=== PATIENT | male | born 1955 | race Caucasian/White ===

== ENCOUNTER → 2016-08-17 | Outpatient (CLI) | payer BC ==
[~2016-08-17] MED LIST: ASPI81TA28 PO; FLUT1INH INH; GLUCTAB4 PO; IPRA1AER2 INH; NUTR-218 PO; OXYC5TAB PO
--- NOTE | 2016-08-17 13:19 | DIAGNOSTIC IMAGING REPORT ---
CT OF THE CHEST WITHOUT IV CONTRAST CLINICAL HISTORY: LUNG CANCER COMPARISON STUDY: 05/16/2016 CT DOSE: 351.19 mGy.cm TECHNIQUE: CT of the thorax was performed from the thoracic inlet to the lung bases. Images are reviewed in the axial, sagittal, and coronal planes. IV contrast was not administered for this examination. FINDINGS: Thyroid: Imaged portions of the thyroid gland are normal in appearance. Thoracic aorta: The thoracic aorta is normal in course and caliber, noting standard 3 vessel arch anatomy. Heart: The heart is normal in size and configuration, without pericardial effusion. Lungs and pleural spaces: There is pulmonary emphysema. There are postsurgical changes of a right lower lobectomy. There is a small right pleural effusion. There are paramediastinal opacities with air bronchograms and mild bronchiectasis. These have a linear border favoring post radiation change. Mediastinum: There is no mediastinal lymphadenopathy. Kary: Clear. Axilla: Clear. Upper abdomen: There is a stable 11 mm hypodensity within the left hepatic lobe. There is cholelithiasis. No adrenal masses are visualized. Skeletal structures: There are no lytic or blastic osseous lesions. IMPRESSION: 1. Postsurgical changes of a right lower lobectomy 2. Paramediastinal anomaly right-sided airspace opacities with a linear border. The findings are most consistent with radiation pneumonitis 3. Small right pleural effusion 4. Emphysema Electronically signed by: Ángel Dietz M.D. 08/17/2016 1:17 PM Dictated Date/Time: 08/17/2016 1:13 PM
== END | disposition home or self-care (01) ==
LOC: C.CTS 13:01
PROVIDERS: ATTEND Surgery
DX: C34.90 Malignant neoplasm of unspecified part of unspecified bronchus or lung (principal); J43.9 Emphysema, unspecified; J90 Pleural effusion, not elsewhere classified

== ENCOUNTER → 2016-12-05 | Outpatient (CLI) | payer BC ==
[~2016-12-05] MED LIST changes: +OPTIRAY 320 IV PRN
--- NOTE | 2016-12-05 08:54 | DIAGNOSTIC IMAGING REPORT ---
CT SCAN OF THE CHEST WITH IV CONTRAST CLINICAL HISTORY: Non-small cell lung cancer. COMPARISON STUDY: Chest CT scans dated 08/17/2016 and 05/26/2016. TECHNIQUE: Following the IV administration of 93 cc of Optiray 320, CT scan of the thorax was performed from the thoracic inlet to the upper abdomen. Images are reviewed in the axial, sagittal, and coronal planes. IV contrast was administered without complication. CT DOSE: 1089.78 mGy.cm FINDINGS: Thyroid: Atrophic. Thoracic aorta: The thoracic aorta is normal in caliber and demonstrates bovine variant arch anatomy. No dissection is seen. There is approximately 50% stenosis of the proximal left subclavian artery secondary soft plaque. Pulmonary vasculature: The pulmonary trunk is normal in caliber. There are no filling defects identified in the central pulmonary vessels to indicate pulmonary embolus. Note that this examination was not protocoled for evaluation of the pulmonary arteries. Heart: The heart is top normal in size and without pericardial effusion. Lungs and pleural spaces: Emphysema is observed. There are postoperative changes from right-sided pulmonary resection with compensatory hyperinflation of the left lung. There is no airspace consolidation typical for pneumonia. Paravertebral scarring/fibrosis at the medial right lung base is similar to previous. There is trace pleural fluid on the right. Parenchymal scarring is also seen in the anterior right upper lung. No left pulmonary lesion is identified. The trachea and central airways are clear. Mediastinum: There is no mediastinal lymphadenopathy. Kary: Clear. Axillae: There is no axillary lymphadenopathy. Upper abdomen: There are calcified gallstones. A small hiatal hernia is noted. Circumferential wall thickening is seen in the mid to distal esophagus. Gynecomastia is observed. No adrenal lesion is seen. Skeletal structures: The skeletal structures are osteopenic. No lytic or blastic bony lesions are seen. IMPRESSION: 1. Emphysema and postoperative change in the right lung as above. 2. Paramediastinal scarring/fibrosis at the right lung base is similar to the 08/17/2016 examination and likely treatment related. There is trace associated right pleural fluid. 3. There is no definite evidence of intrathoracic metastatic disease. 4. No airspace consolidation is identified typical for pneumonia. 5. There is a small hiatal hernia and circumferential wall thickening is identified in the mid to distal esophagus. Correlate clinically for evidence of esophagitis. This may be treatment related. 6. Cholelithiasis. 7. Additional findings as above. Electronically signed by: Kojo Goff M.D. 12/05/2016 8:53 AM Dictated Date/Time: 12/05/2016 8:13 AM
--- NOTE | 2016-12-05 09:33 | DIAGNOSTIC IMAGING REPORT ---
CT SCAN OF THE ABDOMEN AND PELVIS WITH IV CONTRAST CLINICAL HISTORY: Follow-up non-small cell lung cancer. COMPARISON STUDY: Abdominal CT dated 05/26/2016. TECHNIQUE: Following the IV administration of 93 cc of Optiray 320, CT scan of the abdomen and pelvis is performed from the lung bases to the proximal femora. Images are reviewed in the axial, sagittal, and coronal planes. IV contrast was administered without complication. Automated dose control exposure was utilized. CT DOSE: Reported separately under the concurrently performed CT scan of the chest. FINDINGS: Lung bases: The heart is normal in size and without pericardial effusion. Paravertebral fibrosis and trace pleural fluid is seen at the right lung base. Emphysema is observed. No airspace consolidation is seen typical for pneumonia. Gynecomastia is noted. There is a small hiatal hernia with circumferential esophageal wall thickening. Liver: The contrast-enhanced liver is normal in size, contour, and attenuation. There is no intrahepatic biliary ductal dilatation. The hepatic veins and portal veins are patent. 11 mm cyst is noted in the left lobe of liver. 2 additional subcentimeter hypodensities in the right lobe also likely represent cysts but are too small for definitive characterization. These are similar to previous. Gallbladder: Numerous calcified gallstones are identified. There is no CT evidence of cholecystitis. Spleen: Normal in size and attenuation. Pancreas: Unremarkable. Adrenal glands: Unremarkable. Kidneys: The contrast enhanced kidneys demonstrate mild cortical atrophy and are without hydronephrosis. The kidneys enhance symmetrically. Abdominal vasculature: The abdominal aorta is normal in course and caliber noting moderate atherosclerotic calcification. Bowel: The small bowel and colon are normal in course and caliber. There is advanced colonic diverticulosis without CT evidence of acute diverticulitis. Moderate colonic fecal retention is observed. The appendix is well-visualized and normal. Peritoneum: There is no intraperitoneal free air or abdominal ascites. There is a small hiatal hernia. Lymphadenopathy: None. Pelvic viscera: The prostate gland is enlarged and heterogeneous. There is median lobe hypertrophy. The bladder wall is circumferentially thickened and trabeculated suggesting the sequelae of chronic outlet obstruction. Small bladder diverticula are suggested. Skeletal structures: The skeletal structures are osteopenic. No lytic or blastic lesions are seen. IMPRESSION: 1. There is no evidence of metastatic disease in the abdomen or pelvis. 2. Advanced colonic diverticulosis without CT evidence of acute diverticulitis. 3. Paravertebral fibrosis is seen at the right lung base and there is trace right pleural effusion. This likely represents post treatment related change. See report of chest CT performed concurrently for detailed intrathoracic findings. 4. Cholelithiasis. 5. Prostatomegaly with evidence of chronic bladder outlet obstruction. 6. Additional findings as above. Electronically signed by: Kojo Goff M.D. 12/05/2016 9:32 AM Dictated Date/Time: 12/05/2016 9:26 AM
== END | disposition home or self-care (01) ==
LOC: C.CTS 07:46
PROVIDERS: ATTEND Nurse Practitioner Family
DX: C34.31 Malignant neoplasm of lower lobe, right bronchus or lung (principal); K80.20 Calculus of gallbladder without cholecystitis without obstruction; K57.90 Diverticulosis of intestine, part unspecified, without perforation or abscess without bleeding; N40.1 Benign prostatic hyperplasia with lower urinary tract symptoms; J43.9 Emphysema, unspecified; K44.9 Diaphragmatic hernia without obstruction or gangrene

== ENCOUNTER → 2017-01-03 | Outpatient (CLI) | payer BC ==
[2016-06-10 09:29] VITALS: BP 103/61; PULSE 71
[~2017-01-03] MED LIST changes: -OPTIRAY 320 IV PRN
[2017-01-03 13:09] VITALS: BP 115/76; PULSE 90; TEMP 36.8; O2SAT 97
--- NOTE | 2017-01-03 16:27 | Radiation Oncology Follow-Up ---
Radiation Oncology Follow-Up Date of Visit Jan 03, 2017. Reason For Visit 6 month follow-up Radiation Completion Date 05/04/16 Diagnosis (1) Non-small cell cancer of right lung Status: Resolved Onset Date: 11/06/2015 Location: right lower lobe Histology Subtype: adenocarcinoma Stage: lll (A) Permanent Comment: DIAGNOSIS: Lung, RLL, adenocarcinoma, [id number], stage IIIA TREATMENT: 1. Right lower lobectomy/mediastinal lymph node dissection - Dr. Cordoba - 11/24 2. Status post completion of systemic chemotherapy 4 cycles of Taxotere and CDDP 3. Status post completion of radiation therapy 05/04/2016 received 5400 cGy Last Edited By: Yakelin Booker on Jun 10, 2016 10:08 History of Present Illness Mr. Witt is a 60-year-old gentleman who initially underwent a low dose CT screening protocol at [facility] on 09/18/2015. His imaging study revealed a 20 mm pleural-based nodule in the right lower lobe. There is no evidence of any mediastinal adenopathy. He subsequently underwent a pulmonary function test on 10/02/2015 which showed an FEV1 of 3.53 L and a DLCO of 70% predicted. He subsequently underwent a PET/CT scan on 10/07/2015 which revealed FDG avid uptake associated with the right lower lobe nodule which were measured 2 cm in the greatest dimension. Additionally, there were 2 additional pulmonary and pleural-based nodules that measure up to 4 mm that were not FDG avid. There is no avid mediastinal or hilar adenopathy. Additionally, the PET scan did not show any evidence of distant metastatic disease. The patient had a CT-guided needle biopsy on 11/06/2015 which revealed atypical glandular cells highly suspicious for adenocarcinoma. The patient was then seen in consultation by Dr. Nikita Cordoba who did discuss surgical resection for treatment. The patient did elect for a right lower lobectomy and mediastinal lymph node dissection and this procedure was completed on 11/25/2015. Pathology revealed adenocarcinoma in the right lower lobe that measured 2.3 cm in the greatest size. The tumor was well differentiated and did not extend to any visceral or pleural surfaces. The margins were all negative and there is no evidence of lymphovascular space invasion. The mediastinal lymph node dissection revealed 7/12 positive lymph nodes with the greatest dimension being 1 cm with no evidence of extranodal extension. The patient was referred to Dr. Jhoan Llanes who discussed adjuvant chemotherapy. We are now seeing the patient in consultation to discuss the role of adjuvant radiation therapy. He has now completed his 4 cycles of chemotherapy. He was given Taxotere and CDDP. He did have some mild nausea and fatigue. If this is steadily and proving. He no longer has nausea but has some continued fatigue. He would have decreased appetite from the chemotherapy and that this would improve. He also changes of bowel habits. His respiratory status is stable. He does have shortness of breath on exertion. He had an MRI for restaging and that was negative. He presents today for his CT simulation. He completed radiation 05/04/2016. He received 5400 cGy. Interim History He is doing well over the past 6 months. He had some issues with shortness of breath and saw Dr. mckenzie he prescribed an inhaler. He has been using Briel and this did help his shortness of breath especially with going up steps. He has had no problems with any skin irritation or discomfort in the chest. The neuropathy of his fingers has resolved. 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 He also had altered taste and that is normal. He had a recheck CT scan 12/06/2016. This showed emphysema and postoperative changes in the right lung. Paramediastinal scarring/fibrosis at the right lung base is similar to 2016. There is trace associated right pleural fluid. There is no definite evidence of intrathoracic metastatic disease. No airspace consolidation is identified typical for pneumonia. There is small hiatal hernia and circumferential wall thickness is a identified in the mid to lower esophagus. Correlate clinically for evidence of esophagitis. Allergies Coded Allergies: Procaine (Verified Adverse Reaction, Mild, swelling in face, 11/25/15) Pt states has had novaocain since without problem Home Medications Scheduled Aspirin (Aspirin Ec), 81 MG PO QAM Fluticasone Furoate-Vilanterol (Breo Ellipta), 1 PUFF INH DAILY Veewyxvomgm-Pgl-Sef C-Manganes (Glucosamine Msm Complex), 2 CAP PO DAILY Nutritional Supplements (Juice Plus Fibre), 6 CAP PO QAM Scheduled PRN Oxycodone/Acetaminophen 5MG/325MG (Roxicet 5MG/325MG), 1-2 TAB PO Q8 PRN for Pain Review of Systems Gastrointestinal: Symptoms: WNL Oral: Symptoms: No Problems Respiratory: Symptoms: WNL Other Respiratory: SOB at times with CASTRO Urinary: Symptoms: WNL Skin: Symptoms: No Problems Physical Exam Vital Signs Date Time Temp Pulse Resp B/P (MAP) Pulse Ox O2 Delivery O2 Flow Rate FiO2 01/03/17 13:09 36.8 90 16 115/76 97 Fatigue: None General Appearance: no apparent distress Eyes: normal inspection, EOMI ENT: normal ENT inspection, hearing grossly normal Neck: no adenopathy, thyroid normal Respiratory/Chest: lungs clear, no respiratory distress, no accessory muscle use, + decreased breath sounds Cardiovascular: regular rate, rhythm, no gallop, no murmur Abdomen: non tender, soft, no organomegaly Extremities: no pedal edema Neurologic/Psychiatric: no motor/sensory deficits, normal mood/affect Skin: warm/dry Laboratory Studies Test 10/26/16 13:30 12/07/16 08:16 White Blood Count 6.83 K/uL (4.8-10.8) 7.08 K/uL (4.8-10.8) Red Blood Count 5.64 M/uL (4.7-6.1) 5.54 M/uL (4.7-6.1) Hemoglobin 14.9 g/dL (14.0-18.0) 15.0 g/dL (14.0-18.0) Hematocrit 46.3 % (42-52) 46.0 % (42-52) Mean Corpuscular Volume 82.1 fL (80-100) 83.0 fL (80-100) Mean Corpuscular Hemoglobin 26.4 pg (25-34) 27.1 pg (25-34) Mean Corpuscular Hemoglobin Concent 32.2 g/dl (32-36) 32.6 g/dl (32-36) Platelet Count 322 K/uL (130-400) 306 K/uL (130-400) Mean Platelet Volume 9.4 fL (7.4-10.4) 9.0 fL (7.4-10.4) Neutrophils (%) (Auto) 60.1 % 65.6 % Lymphocytes (%) (Auto) 23.6 % 17.5 % Monocytes (%) (Auto) 9.8 % 11.9 % Eosinophils (%) (Auto) 5.6 % 3.4 % Basophils (%) (Auto) 0.6 % 1.0 % Neutrophils # (Auto) 4.11 K/uL (1.4-6.5) 4.65 K/uL (1.4-6.5) Lymphocytes # (Auto) 1.61 K/uL (1.2-3.4) 1.24 K/uL (1.2-3.4) Monocytes # (Auto) 0.67 K/uL (0.11-0.59) 0.84 K/uL (0.11-0.59) Eosinophils # (Auto) 0.38 K/uL (0-0.5) 0.24 K/uL (0-0.5) Basophils # (Auto) 0.04 K/uL (0-0.2) 0.07 K/uL (0-0.2) RDW Standard Deviation 43.1 fL (36.4-46.3) 42.6 fL (36.4-46.3) RDW Coefficient of Variation 14.4 % (11.5-14.5) 14.0 % (11.5-14.5) Immature Granulocyte % (Auto) 0.3 % 0.6 % Immature Granulocyte # (Auto) 0.02 K/uL (0.00-0.02) 0.04 K/uL (0.00-0.02) Urine Color YELLOW Urine Appearance CLEAR (CLEAR) Urine pH 7.0 (4.5-7.5) Urine Specific [place] 1.013 (1.000-1.030) Urine Protein NEG (NEG) Urine Glucose (UA) NEG (NEG) Urine Ketones NEG (NEG) Urine Occult Blood NEG (NEG) Urine Nitrite NEG (NEG) Urine Bilirubin NEG (NEG) Urine Urobilinogen NEG (NEG) Urine Leukocyte Esterase NEG (NEG) Sodium Level 139 mmol/L (136-145) 139 mmol/L (136-145) Potassium Level 4.3 mmol/L (3.5-5.1) 4.1 mmol/L (3.5-5.1) Chloride Level 103 mmol/L (98-107) 105 mmol/L (98-107) Carbon Dioxide Level 27 mmol/L (21-32) 27 mmol/L (21-32) Anion Gap 9.0 mmol/L (3-11) 7.0 mmol/L (3-11) Blood Urea Nitrogen 15 mg/dl (7-18) 13 mg/dl (7-18) Creatinine 1.20 mg/dl (0.60-1.40) 1.10 mg/dl (0.60-1.40) Estimated GFR () 75.2 82.9 Estimated GFR (Non- 64.9 71.6 BUN/Creatinine Ratio 12.7 (10-20) 11.9 (10-20) Random Glucose 85 mg/dl (70-99) 96 mg/dl (70-99) Calcium Level 9.1 mg/dl (8.5-10.1) 9.4 mg/dl (8.5-10.1) Total Bilirubin 1.1 mg/dl (0.2-1) 1.0 mg/dl (0.2-1) Aspartate Amino Transferase (AST) 15 U/L (15-37) 12 U/L (15-37) Alanine Aminotransferase (ALT) 30 U/L (12-78) 26 U/L (12-78) Alkaline Phosphatase 85 U/L (45-117) 75 U/L (45-117) Total Protein 7.5 gm/dl (6.4-8.2) 7.3 gm/dl (6.4-8.2) Albumin 4.2 gm/dl (3.4-5.0) 3.8 gm/dl (3.4-5.0) Globulin 3.3 gm/dl (2.5-4.0) 3.5 gm/dl (2.5-4.0) Albumin/Globulin Ratio 1.3 (0.9-2) 1.1 (0.9-2) Triglycerides Level 147 mg/dl (0-150) Cholesterol Level 216 mg/dl (0-200) HDL Cholesterol 57 mg/dl LDL Cholesterol, Calculated 130 mg/dl VLDL Cholesterol, Calculated 29 mg/dl Cholesterol/HDL Ratio 3.8 Lactate Dehydrogenase 119 U/L (87-241) Additional Studies Patient: SASCHA WITT Address1: [address] [facility] Rec: [id number] Address2: Acct ID: [id number] [facility] Zip: [place] [address] Date: 1955 Sex: M Room/Bed: Ref Phy: Sascha Sifuentes M.D.(ELKE) SC: C.CTS Att Phy: Mally Mercer CRNP Report #: [id number] Miri Phy: Sascha Sifuentes M.D.(ELKE) Test: APW Admit Phy: Data Collection Specialist: KAYDEN Interpreting Phy: Kojo Goff M.D. Diagnosis: NON SMALL CELL LUNG CA Ordering Phy: Mally Mercer Service Date: 12/05/16 Admit Date: 12/05/16 MNE: [id number] CONF: DICTATED BY: Kojo Goff M.D.]] CC: Sascha Sifuentes M.D.(ELKE) Mally Mercer CRNP Endcc: [~ rep ct add3]] CT SCAN OF THE ABDOMEN AND PELVIS WITH IV CONTRAST CLINICAL HISTORY: Follow-up non-small cell lung cancer. COMPARISON STUDY: Abdominal CT dated 05/26/2016. TECHNIQUE: Following the IV administration of 93 cc of Optiray 320, CT scan of the abdomen and pelvis is performed from the lung bases to the proximal femora. Images are reviewed in the axial, sagittal, and coronal planes. IV contrast was administered without complication. Automated dose control exposure was utilized. CT DOSE: Reported separately under the concurrently performed CT scan of the chest. FINDINGS: Lung bases: The heart is normal in size and without pericardial effusion. Paravertebral fibrosis and trace pleural fluid is seen at the right lung base. Emphysema is observed. No airspace consolidation is seen typical for pneumonia. Gynecomastia is noted. There is a small hiatal hernia with circumferential esophageal wall thickening. Liver: The contrast-enhanced liver is normal in size, contour, and attenuation. There is no intrahepatic biliary ductal dilatation. The hepatic veins and portal veins are patent. 11 mm cyst is noted in the left lobe of liver. 2 additional subcentimeter hypodensities in the right lobe also likely represent cysts but are too small for definitive characterization. These are similar to previous. Gallbladder: Numerous calcified gallstones are identified. There is no CT evidence of cholecystitis. Spleen: Normal in size and attenuation. Pancreas: Unremarkable. Adrenal glands: Unremarkable. Kidneys: The contrast enhanced kidneys demonstrate mild cortical atrophy and are without hydronephrosis. The kidneys enhance symmetrically. Abdominal vasculature: The abdominal aorta is normal in course and caliber noting moderate atherosclerotic calcification. Bowel: The small bowel and colon are normal in course and caliber. There is advanced colonic diverticulosis without CT evidence of acute diverticulitis. Moderate colonic fecal retention is observed. The appendix is well-visualized and normal. Peritoneum: There is no intraperitoneal free air or abdominal ascites. There is a small hiatal hernia. Lymphadenopathy: None. Pelvic viscera: The prostate gland is enlarged and heterogeneous. There is median lobe hypertrophy. The bladder wall is circumferentially thickened and trabeculated suggesting the sequelae of chronic outlet obstruction. Small bladder diverticula are suggested. Skeletal structures: The skeletal structures are osteopenic. No lytic or blastic lesions are seen. IMPRESSION: 1. There is no evidence of metastatic disease in the abdomen or pelvis. 2. Advanced colonic diverticulosis without CT evidence of acute diverticulitis. 3. Paravertebral fibrosis is seen at the right lung base and there is trace right pleural effusion. This likely represents post treatment related change. See report of chest CT performed concurrently for detailed intrathoracic findings. 4. Cholelithiasis. 5. Prostatomegaly with evidence of chronic bladder outlet obstruction. 6. Additional findings as above. Electronically signed by: Kojo Goff M.D. 12/05/2016 9:32 AM Dictated Date/Time: 12/05/2016 9:26 AM Patient: SASCHA WITT Address1: [address] [facility] Rec: [id number] Address2: Acct ID: [id number] [facility] Zip: [place] [id number] Date: 1955 Sex: M Room/Bed: Ref Phy: Sascha Sifuentes M.D.(ELKE) SC: C.CTS Att Phy: Mally Mercer CRNP Report #: [id number] Miri Phy: Sascha Sifuentes M.D.(ELKE) Test: CX Admit Phy: Data Collection Specialist: KAYDEN Interpreting Phy: Kojo Goff M.D. Diagnosis: NON SMALL CELL LUNG CA Ordering Phy: Mally Mercer Service Date: 12/05/16 Admit Date: 12/05/16 MNE: [id number] CONF: DICTATED BY: Kojo Goff M.D.]] CC: Sascha Sifuentes M.D.(Mally Concepcion CRNP Endcc: [~ rep ct add3]] CT SCAN OF THE CHEST WITH IV CONTRAST CLINICAL HISTORY: Non-small cell lung cancer. COMPARISON STUDY: Chest CT scans dated 08/17/2016 and 05/26/2016. TECHNIQUE: Following the IV administration of 93 cc of Optiray 320, CT scan of the thorax was performed from the thoracic inlet to the upper abdomen. Images are reviewed in the axial, sagittal, and coronal planes. IV contrast was administered without complication. CT DOSE: 1089.78 mGy.cm FINDINGS: Thyroid: Atrophic. Thoracic aorta: The thoracic aorta is normal in caliber and demonstrates bovine variant arch anatomy. No dissection is seen. There is approximately 50% stenosis of the proximal left subclavian artery secondary soft plaque. Pulmonary vasculature: The pulmonary trunk is normal in caliber. There are no filling defects identified in the central pulmonary vessels to indicate pulmonary embolus. Note that this examination was not protocoled for evaluation of the pulmonary arteries. Heart: The heart is top normal in size and without pericardial effusion. Lungs and pleural spaces: Emphysema is observed. There are postoperative changes from right-sided pulmonary resection with compensatory hyperinflation of the left lung. There is no airspace consolidation typical for pneumonia. Paravertebral scarring/fibrosis at the medial right lung base is similar to previous. There is trace pleural fluid on the right. Parenchymal scarring is also seen in the anterior right upper lung. No left pulmonary lesion is identified. The trachea and central airways are clear. Mediastinum: There is no mediastinal lymphadenopathy. Kary: Clear. Axillae: There is no axillary lymphadenopathy. Upper abdomen: There are calcified gallstones. A small hiatal hernia is noted. Circumferential wall thickening is seen in the mid to distal esophagus. Gynecomastia is observed. No adrenal lesion is seen. Skeletal structures: The skeletal structures are osteopenic. No lytic or blastic bony lesions are seen. IMPRESSION: 1. Emphysema and postoperative change in the right lung as above. 2. Paramediastinal scarring/fibrosis at the right lung base is similar to the 08/17/2016 examination and likely treatment related. There is trace associated right pleural fluid. 3. There is no definite evidence of intrathoracic metastatic disease. 4. No airspace consolidation is identified typical for pneumonia. 5. There is a small hiatal hernia and circumferential wall thickening is identified in the mid to distal esophagus. Correlate clinically for evidence of esophagitis. This may be treatment related. 6. Cholelithiasis. 7. Additional findings as above. Electronically signed by: Kojo Goff M.D. 12/05/2016 8:53 AM Assessment & Plan Plan: Continue regular follow-up with Dr. Mckenzie, Dr. Marquez, and Dr. Llanes. He was seen today also by Dr. Henry. We discussed the findings on the study the 3 torres some inflammation or thickening of the esophagus. This they have been related to the radiation therapy. This will be followed on recheck CT scans. If persistent stent he may need to have an upper GI endoscopy. We asked him to return to our office in 1 year. We have reviewed that he will likely be scheduled for recheck CAT scan in May through Dr. Llanes's office. He may call our office if he has any questions or concerns in the interim. Total Time In Follow-Up I spent 15 minutes speaking to the patient performing examination. I spent 15 minutes reviewing information in completing this note. Copy To Jhoan Llanes D.O.; Nikita Mckenzie DO; Srini Marquez M.D.
== END | disposition home or self-care (01) ==
LOC: C.ONC 13:05
PROVIDERS: ATTEND Physician Assistant Medical
DX: Z08 Encounter for follow-up examination after completed treatment for malignant neoplasm (principal); Z92.3 Personal history of irradiation; Z85.118 Personal history of other malignant neoplasm of bronchus and lung

== ENCOUNTER → 2017-06-22 | Outpatient (CLI) | payer BC ==
[~2017-06-22] MED LIST changes: -IPRA1AER2 INH
--- NOTE | 2017-06-22 15:42 | DIAGNOSTIC IMAGING REPORT ---
CT SCAN OF THE CHEST WITHOUT IV CONTRAST CLINICAL HISTORY: Non-small cell lung cancer. COMPARISON STUDY: Chest CT scans dated 12/05/2016 and 05/26/2016. TECHNIQUE: CT scan of the thorax was performed from the thoracic inlet to the upper abdomen. Images are reviewed in the axial, sagittal, and coronal planes. IV contrast was not administered for this examination as per the referring clinician. A dose lowering protocol was utilized adhering to the principles of ALARA. The examination is degraded by streak artifact from the left arm which could not be elevated above the chest. CT DOSE: 600.47 mGycm FINDINGS: Thyroid: Atrophic. Thoracic aorta: The thoracic aorta is normal in caliber and demonstrates bovine variant arch anatomy. Heart: The heart is top normal in size and without pericardial effusion. The pulmonary trunk is normal in caliber. Lungs and pleural spaces: Emphysema is observed. There are postoperative changes from right-sided pulmonary resection with compensatory hyperinflation of the left lung. There is no airspace consolidation typical for pneumonia. Paravertebral scarring/fibrosis at the medial right lung base is similar to previous. There is trace pleural fluid on the right. Parenchymal scarring is also seen in the anterior right upper lung. No left pulmonary lesion is identified. The trachea and central airways are clear. Mediastinum: There is no mediastinal lymphadenopathy. There is curvature to the mediastinum, similar to previous. Kary: Not well assessed without IV contrast. Axillae: There is no axillary lymphadenopathy. Upper abdomen: There are calcified gallstones. A moderate hiatal hernia is noted. Circumferential wall thickening is again seen in the mid to distal esophagus. Gynecomastia is observed. No adrenal lesion is seen. A 10 mm cyst is noted in the left lobe of liver. Skeletal structures: The skeletal structures are osteopenic. No lytic or blastic bony lesions are seen. IMPRESSION: 1. Emphysema and postoperative change in the right lung as above. 2. Paramediastinal scarring/fibrosis at the right lung base is similar to prior examinations and likely treatment related. There is trace associated right pleural fluid. 3. There is no clear evidence of recurrent or metastatic disease in the thorax. 4. No airspace consolidation is identified typical for pneumonia. 5. There is a small hiatal hernia with circumferential wall thickening again identified in the mid to distal esophagus. This may be treatment related. Clinical correlation will be required. 6. Cholelithiasis. 7. Additional findings as above. Electronically signed by: Kojo Goff M.D. 06/22/2017 3:41 PM Dictated Date/Time: 06/22/2017 3:35 PM
== END | disposition home or self-care (01) ==
LOC: C.CTS 15:10
PROVIDERS: ATTEND Surgery
DX: C34.90 Malignant neoplasm of unspecified part of unspecified bronchus or lung (principal); J43.9 Emphysema, unspecified; Z90.2 Acquired absence of lung [part of]; J84.10 Pulmonary fibrosis, unspecified; K44.9 Diaphragmatic hernia without obstruction or gangrene; K80.20 Calculus of gallbladder without cholecystitis without obstruction

== ENCOUNTER → 2017-06-22 | Outpatient (CLI) | payer BC ==
[~2017-06-22] MED LIST changes: +OPTIRAY 320 IV PRN
--- NOTE | 2017-06-22 16:16 | DIAGNOSTIC IMAGING REPORT ---
CT OF THE ABDOMEN AND PELVIS WITH CONTRAST CLINICAL HISTORY: Non-small cell lung cancer. COMPARISON STUDY: CT of the abdomen and pelvis December 05, 2016. TECHNIQUE: Following IV administration of 94 mL of Optiray-320, axial images of the abdomen and pelvis were obtained from the lung bases to the proximal femurs. Images were reviewed in the axial, sagittal, and coronal planes. IV contrast was administered without complication. A dose lowering technique was utilized adhering to the principles of ALARA. CT DOSE: 1293.78 mGycm FINDINGS: The chest CT will be reported separately. A few hypodense hepatic lesions are unchanged and likely reflect cysts. The spleen, adrenal glands, kidneys and pancreas are unremarkable. There are gallstones within the gallbladder. There is no hydronephrosis. There is no biliary or pancreatic ductal dilatation. No enlarged abdominal or pelvic lymph nodes are present. Caliber and wall thickness of small and large bowel are normal. There is extensive colonic diverticulosis without evidence for acute diverticulitis. No ascites is present. No suspicious osseous lesions are present. Prostate is mildly enlarged. The appendix is normal. IMPRESSION: 1. No evidence of metastatic disease within the abdomen or pelvis. 2. Cholelithiasis. 3. Colonic diverticulosis without evidence for acute diverticulitis. Electronically signed by: Manish Prabhakar M.D. 06/22/2017 4:14 PM Dictated Date/Time: 06/22/2017 3:35 PM
== END | disposition home or self-care (01) ==
LOC: C.CTS 15:02
PROVIDERS: ATTEND Internal Medicine Hematology & Oncology
DX: C34.31 Malignant neoplasm of lower lobe, right bronchus or lung (principal); K80.20 Calculus of gallbladder without cholecystitis without obstruction; K57.30 Diverticulosis of large intestine without perforation or abscess without bleeding

== ENCOUNTER → 2018-01-01 | Outpatient (CLI) | payer BC ==
[~2018-01-01] MED LIST changes: -OPTIRAY 320 IV PRN
--- NOTE | 2018-01-01 10:53 | DIAGNOSTIC IMAGING REPORT ---
CHEST 2 VIEWS ROUTINE HISTORY: 62 years-old Male NON SMALL CELL LUNG CA follow-up study in a patient with history of non-small cell lung carcinoma. COMPARISON: Chest CT 06/22/2017, chest radiograph 12/16/2015 TECHNIQUE: PA and lateral views of the chest FINDINGS: Cardiac silhouette is within normal limits in size. Mediastinal scarring and fibrosis about the right lung base appears unchanged. Postoperative changes of the right lung redemonstrated with chronic volume loss. Moderate right hemidiaphragmatic elevation. No pneumothorax, large pleural effusion or overt pulmonary edema. The left lung demonstrates compensatory hyperinflation and is clear. Emphysema. Bones of the chest appear grossly intact. IMPRESSION: 1. No acute process of the chest. 2. Postoperative changes with chronic scarring and volume loss about the right lung as above. 3. Emphysema. The above report was generated using voice recognition software. It may contain grammatical, syntax or spelling errors. Electronically signed by: Chris Ahumada M.D. 01/01/2018 10:51 AM Dictated Date/Time: 01/01/2018 10:49 AM
== END | disposition home or self-care (01) ==
LOC: C.RAD 10:32
PROVIDERS: ATTEND Nurse Practitioner Family
DX: C34.31 Malignant neoplasm of lower lobe, right bronchus or lung (principal); J43.9 Emphysema, unspecified

== ENCOUNTER 2023-08-27 15:51 | Inpatient (IN) ==
[2023-08-27 16:51] LABS: Hematocrit (blood only) 45.4 % (42.0-52.0); Hemoglobin 14.8 g/dl (14.0-18.0); Mean Corpuscular Hemoglobin 27.1 pg (25.0-34.0); Mean Corpuscular Hgb Conc 32.6 g/dL (32.0-36.0); Mean Platelet Volume 10.2 fL (9.4-12.4); Platelet Count 233 K/uL (130-400); RDW Coefficient of Variation 13.3 % (11.5-14.5); RDW Standard Deviation 40.2 fL (36.4-46.3); Red Blood Count 5.47 M/uL (4.70-6.10); White Blood Count 8.05 K/ul (4.8-10.8)
--- NOTE | 2023-08-27 17:13 | CT Scan Report ---
HEAD CT NONCONTRAST CT DOSE: 547.75 mGy.cm HISTORY: trauma TECHNIQUE: Multiaxial CT images of the head were performed without the use of intravenous contrast. A utomated exposure control was utilized for this study. A dose lowering technique was utilized adheri ng to the principles of ALARA. Comparison: Brain MRI 01/11/2016. Findings: Small amount of hyperdense material within the right maxillary sinus. This could represent inspissated secretions or hemorrhage. The mastoid air cells are clear. Right frontal scalp/supraorbit al soft tissue swelling with a small laceration. There is also nasal soft tissue swelling and mild ri ght occipital scalp swelling.. The calvarium and skull base are intact. The ventricles and sulci are within normal limits. There is no mass, hematoma, midline shift, or acute infarct. Impression: 1. No acute intracranial abnormality. 2. Right-sided scalp and nasal soft tissue swelling. ACT 112: Negative or not required by law. Electronically signed by: Casey Casey M.D. 08/27/2023 5:11 PM
[2023-08-27] MEDS: LIDOCAINE/EPINEPH/TETRACAINE 1 EA SYR EXT STA (17:17)
--- NOTE | 2023-08-27 17:17 | XRay Report ---
XR chest 1V portable HISTORY: Fall. trauma COMPARISON: Chest CT 03/23/2023. FINDINGS: No pneumothorax. The heart is top normal in size. Stable volume loss and blunting of the ri ght lateral costophrenic sulcus suggestive of chronic/postoperative change. No new focal lung consoli dations to suggest a pneumonia. No evidence for pulmonary edema. No acute fractures identified. Stabl e linear scarlike densities within the right lung base. IMPRESSION: No acute process. ACT 112: Negative or not required by law. Electronically signed by: Casey Casey M.D. 08/27/2023 5:15 PM
[2023-08-27 17:19] LABS: INR 1.2 (0.9-1.1); Partial Thromboplastin Ratio 0.8; Partial Thromboplastin Time 22 Seconds (21-31); Prothrombin Time 12.9 Seconds (9.0-12.0)
[2023-08-27 17:26] LABS: Potassium 4.1 mmol/L (3.5-5.1)
[2023-08-27 17:32] LABS: Albumin Globulin Ratio 1.4 (0.9-2); BUN Creatinine Ratio 13.1 (10-20); Bilirubin,Total 1.2 mg/dl (0.2-1.0); Calcium 8.7 mg/dl (8.6-10.3); Creatinine Clr Calc Pharmacy 80.2 ml/min; Est GFR (African American) 90.3 ml/min; Est GFR (Non-African American) 77.9 ml/min; Globulin 2.9 gm/dl (2.5-4.0); Magnesium 2.1 mg/dl (1.7-2.4); Total Protein 6.9 gm/dl (6.0-8.3)
--- NOTE | 2023-08-27 18:04 | CT Scan Report ---
MAXILLOFACIAL CT CT DOSE: HISTORY: fall, nasal injury, right eye lac, syncope TECHNIQUE: Multiaxial CT images of the maxillofacial region were performed and reformatted in the cor onal plane without the use of contrast. A dose lowering technique was utilized adhering to the princ iplrenetta of MOY. COMPARISON: None. FINDINGS: Minimally displaced right nasal bone fracture. There is nasal soft tissue swelling. The vis ualized cervical spine, skull base, pterygoid plates, zygomatic arches, lamina papyracea, orbital dahlia ors, nasal septum, and mandible are intact. There is a punctate metallic density within the right upp er lip on image 167 consistent with a foreign body the globes and retrobulbar fat are intact. There i s right supraorbital and nasal soft tissue swelling. Small amount of hemorrhage noted within the righ t maxillary sinus. IMPRESSION: 1. Minimally displaced right nasal bone fracture. 2. Right supraorbital and nasal soft tissue swelling. 3. There is a punctate metallic foreign body within the upper lip. ACT 112: Negative or not required by law. Electronically signed by: Casey Casey M.D. 08/27/2023 6:01 PM
[2023-08-27 18:41] LABS: Troponin I High Sensitivity 4.4 pg/ml (0-20)
--- NOTE | 2023-08-27 18:41 | Emergency Department Note ---
ED Visit Note I was asked by Dr. Castro to repair this patient's facial lacerations. Examination reveals a 3 cm curvilinear, irregular laceration through the right eyebrow. There is an additional 1 cm superficial laceration over the nasal bridge. No foreign bodies seen in either wound. Patient also requested that I examine the right hand, which shows 2 skin tears over the dorsal hand, proximal to the thumb. Neither of these will require repair. Verbal consent was obtained to perform the procedures and lacerations were closed as follows: Right eyebrow laceration: LET gel was applied to the wound and left placer greater than 30 minutes. Using sterile technique the wound was cleaned with Betadine. The wound was cleansed with sterile saline. The laceration was repaired using 8 simple interrupted 6-0 nylon sutures with the wound edges being well approximated. The patient tolerated the procedure well. Hemostasis was achieved. Nasal bridge laceration: Let gel was applied to the wound and left in place for greater than 30 minutes. Using sterile technique the wound was cleaned with Betadine. The laceration was repaired using 2 simple interrupted 6-0 nylon sutures with the wound edges being well approximated. The patient tolerated the procedure well. Hemostasis was achieved.
[2023-08-27 19:19] LABS: Influenza A virus by PCR Negative (Neg); Influenza B virus by PCR Negative (Neg); RSV by PCR Negative (Neg); SARS CoV2 RNA(COVID-19) Ceph NEGATIVE (Negative)
[2023-08-27] MEDS: ACETAMINOPHEN 500 MG TAB PO STA (19:37)
--- NOTE | 2023-08-27 19:42 | XRay Report ---
XR hand RT min 3V routine CLINICAL HISTORY: fall, pain, thenar eminence. Right hand pain. COMPARISON STUDY: None. FINDINGS: Soft tissue swelling at the thumb base. There is a punctate metallic foreign body within th e distal soft tissues of the right index finger.. Transverse fracture at the base of the right first metacarpal which is mildly displaced. There may be a small intra-articular component of the fracture. There is also radial dislocation of the first metacarpal relation to the trapezium bone. IMPRESSION: 1. Fracture at the base the right first metacarpal which appears to demonstrate a small intra-articul ar component. 2. There is associated radial dislocation at the first carpometacarpal joint. ACT 112: Negative or not required by law. Electronically signed by: Casey Casey M.D. 08/27/2023 7:39 PM
--- NOTE | 2023-08-27 20:11 | CT Scan Report ---
CERVICAL SPINE CT CT DOSE: HISTORY: fall, neck pain TECHNIQUE: Multiaxial CT images of the cervical spine were performed and reformatted in the sagittal and coronal plane without the use of contrast. A dose lowering technique was utilized adhering to th e principles of ALARA. COMPARISON: None. FINDINGS: No fractures. No subluxation. Prevertebral soft tissues and the C1-C2 interval are intact. No pneumothorax. Moderate degenerative changes are noted. IMPRESSION: No fractures within the cervical spine. ACT 112: Negative or not required by law. Electronically signed by: Casey Casey M.D. 08/27/2023 8:09 PM
[2023-08-27] MEDS: ceFAZolin 2000MG 2,000 MG/15 ML SYR IV STA (20:38)
--- NOTE | 2023-08-27 21:53 | History & Physical Report ---
Date of Service August 27, 2023 Assessment & Plan (1) Syncope and collapse: Plan: 67-year-old male with past medical history significant for hyperlipidemia, COPD, diverticulosis of large intestine, obesity, right lung lower lobe adenocarcinoma status post right lung lower lobectomy in 2016 and s/p chemo and radiation , radiation fibrosis of the lung presents with syncope. Patient states he quit smoking when he was diagnosed with lung cancer. But lately once in a while he is smoking. Yesterday had a 6 episodes of diarrhea. Today morning he had 1 episode of loose stools and he was feeling better. He went to [facility]. He smoked. Then he felt dizzy and felt like passing out and next thing he remembers was waking up in the ambulance. He was told that he passed out for about 5 minutes. When he woke up in the ambulance he was seemed confused for couple of minutes then he was back to his usual self. Has headache. Has pain in the right side of neck. Vision is okay. No runny nose. No sore throat. No cough. No chest pains. No shortness of breath. No nausea. No abdominal pain. Normal micturition. No hematuria. No blood in the stools. No swelling the legs. Before this episode he was ambulating okay. No fevers. Syncope and collapse Was having diarrhea yesterday Will check orthostatics IV fluids Telemetry monitoring Will follow serial cardiac enzymes and echo Cardiology consult in a.m. for further recommendations Facial injuries per Imaging studies Will monitor Supportive care Needs follow-up Right first metacarpal fracture S/p splint in the ER Consult orthopedics Pain control Diarrhea Seems improving Will follow stool studies History of COPD Continue home inhalers History of lung cancer S/p right lower lobectomy S/p chemo and radiation Follows with pulmonary Hyperlipidemia On statin DVT prophylaxis SCDs for now Disposition Telemetry Full code History of Present Illness Chief Complaint: Syncope Primary Care Provider: Isak Gtz MD 67-year-old male with past medical history significant for hyperlipidemia, COPD, diverticulosis of large intestine, obesity, right lung lower lobe adenocarcinoma status post right lung lower lobectomy in 2016 and s/p chemo and radiation , radiation fibrosis of the lung presents with syncope. Patient states he quit smoking when he was diagnosed with lung cancer. But lately once in a while he is smoking. Yesterday had a 6 episodes of diarrhea. Today morning he had 1 episode of loose stools and he was feeling better. He went to [facility]. He smoked. Then he felt dizzy and felt like passing out and next thing he remembers was waking up in the ambulance. He was told that he passed out for about 5 minutes. When he woke up in the ambulance he was seemed confused for couple of minutes then he was back to his usual self. Has headache. Has pain in the right side of neck. Vision is okay. No runny nose. No sore throat. No cough. No chest pains. No shortness of breath. No nausea. No abdominal pain. Normal micturition. No hematuria. No blood in the stools. No swelling the legs. Before this episode he was ambulating okay. No fevers. Past medical history. As mentioned above Past surgical history.Bronchoscopy. Colonoscopy. [place] tooth removal. Knee arthroscopy. Inguinal hernia repair. Right medial meniscus repair. S/p right lower lobectomy. Social history. . Smoked from -. Smoked 1 pack a day for 41 years. Currently smoking 1 or 2 cigarettes on and off. States 1 pack of cigarettes last 2 weeks. Drinks alcohol. No drug use. Family history. Brother had prostate cancer. Sister had breast cancer. Mother had valvular heart disease. Father had stroke. Allergies Allergy/AdvReac Type Severity Reaction Status Date / Time procaine Allergy Intermediate swelling Verified 08/27/23 18:12 in face--NOVACAINE OKAY PER PT Home Medications Medication Instructions Recorded Confirmed Type atorvastatin 20 mg tablet 20 mg PO DAILY 02/12/20 08/27/23 History fluticasone fur. 100 mcg-umeclid 1 inh inhalation DAILY #60 ea 08/02/23 08/27/23 Rx 62.5 mcg-vilant 25 mcg inhalat.powder (Trelegy Ellipta) aspirin 81 mg tablet,delayed 81 mg PO DAILY 08/27/23 08/27/23 History release Past Med/Surg History Medical History (Updated 08/27/23 @ 22:40 by Santiago Castro MD) Mild chronic obstructive pulmonary disease Radiation fibrosis Non-small cell cancer of right lung (11/06/15) "DIAGNOSIS: Lung, RLL, adenocarcinoma, [id number], stage IIIA TREATMENT: 1. Right lower lobectomy/mediastinal lymph node dissection - Dr. Cordoba - 11/25/15 2. Status post completion of systemic chemotherapy 4 cycles of Taxotere and CDDP 3. Status post completion of radiation therapy 05/04/2016 received 5400 cGy " On 03/11/16 10:50 Yakelin Booker wrote "DIAGNOSIS: Lung, RLL, adenocarcinoma, [id number], stage IIIA TREATMENT: 1. Right lower lobectomy/mediastinal lymph node dissection - Dr. Cordoba - 11/25/15 2. Status post completion of systemic chemotherapy 4 cycles of Taxotere and CDDP 3. Now for radiation therapy" On 12/23/15 09:35 Lissette Henry wrote "DIAGNOSIS: Lung, RLL, adenocarcinoma, [id number], stage IIIA TREATMENT: 1. Right lower lobectomy/mediastinal lymph node dissection - Dr. Cordoba - 11/25/15" Surgical History History of lobectomy of lung History of hernia surgery H/O knee surgery Family History Mother Breast cancer Cardiac disorder Sister Breast cancer Father Hypertension Stroke Social History Smoking Status: Current some day smoker Tobacco Type: Cigarettes Age Started Using Tobacco: 15; Age Quit Using Tobacco: 60; packs per day: 1; Cigarettes Per Day: 20; Second Hand Exposure: No; Do You Dip or Chew Tobacco: No; Tobacco Cessation Education Requested by Patient: No Hx Alcohol Use: Yes Alcohol type: beer Hx Substance Use: No Preferred Language: Ghanaian Communication Ability: Effective Visual Impairment: No Limitations Hearing Ability: Normal 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 ENT- oropharynx clear Neck- supple, no JVD, Lungs- clear to auscultation no wheezing or crackles. Heart- regular rate and rhythm; no murmur, no gallop. Abdomen- normal bowel sounds, soft, nontender, no distension. Extremities- no pretibial edema, no erythema seen. Neuro- alert, oriented x; PERRL, no facial palsy; no dysarthria; moves extremities. Results & Data Results & Data Vital Signs (Past 12 Hours) Vital Signs Pulse Pulse Resp BP BP Pulse Ox O2 Del Method 08/27/23 20:24 87 08/27/23 19:00 87 16 104/68 94 Room Air 08/27/23 16:25 94 Room Air 08/27/23 16:24 87 08/27/23 16:00 95 Room Air 08/27/23 16:00 88 16 130/88 95 Room Air Diagnostic Findings Laboratory Results WBC 8.05 K/ul (4.8-10.8) 08/27/23 16:07 RBC 5.47 M/uL (4.70-6.10) 08/27/23 16:07 Hgb 14.8 g/dl (14.0-18.0) 08/27/23 16:07 Hct 45.4 % (42.0-52.0) 08/27/23 16:07 MCV 83.0 fL (80.0-100.0) 08/27/23 16:07 MCH 27.1 pg (25.0-34.0) 08/27/23 16:07 MCHC 32.6 g/dL (32.0-36.0) 08/27/23 16:07 RDW Std Deviation 40.2 fL (36.4-46.3) 08/27/23 16:07 RDW Coeff of Ekaterina 13.3 % (11.5-14.5) 08/27/23 16:07 Plt Count 233 K/uL (130-400) 08/27/23 16:07 MPV 10.2 fL (9.4-12.4) 08/27/23 16:07 PT 12.9 Seconds (9.0-12.0) H 08/27/23 16:07 INR 1.2 (0.9-1.1) H 08/27/23 16:07 APTT 22 Seconds (21-31) 08/27/23 16:07 PTT Ratio 0.8 08/27/23 16:07 Sodium 136 mmol/L (136-145) 08/27/23 16:07 Potassium 4.1 mmol/L (3.5-5.1) 08/27/23 16:07 Chloride 104 mmol/L (98-107) 08/27/23 16:07 Carbon Dioxide 21 mmol/L (21-32) 08/27/23 16:07 Anion Gap 11 (3-11) 08/27/23 16:07 BUN 13 mg/dl (6-23) 08/27/23 16:07 Creatinine 0.99 mg/dl (0.6-1.4) 08/27/23 16:07 Est Cr Clr Drug Dosing 80.2 ml/min 08/27/23 16:07 Est GFR ( Amer) 90.3 ml/min 08/27/23 16:07 Est GFR (Non-Af Amer) 77.9 ml/min 08/27/23 16:07 BUN/Creatinine Ratio 13.1 (10-20) 08/27/23 16:07 Glucose 122 mg/dl (70-99(Fasting)) H 08/27/23 16:07 Calcium 8.7 mg/dl (8.6-10.3) 08/27/23 16:07 Magnesium 2.1 mg/dl (1.7-2.4) 08/27/23 16:07 Total Bilirubin 1.2 mg/dl (0.2-1.0) H 08/27/23 16:07 AST 21 U/L (13-39) 08/27/23 16:07 ALT 19 U/L (7-52) 08/27/23 16:07 Alkaline Phosphatase 63 U/L (34-104) 08/27/23 16:07 Troponin I High Sens 4.4 pg/ml (0-20) 08/27/23 16:07 Total Protein 6.9 gm/dl (6.0-8.3) 08/27/23 16:07 Albumin 4.0 gm/dl (3.4-5.0) 08/27/23 16:07 Globulin 2.9 gm/dl (2.5-4.0) 08/27/23 16:07 Albumin/Globulin Ratio 1.4 (0.9-2) 08/27/23 16:07 SARS-CoV-2 (PCR) NEGATIVE (Negative) 08/27/23 18:02 Influenza Type A (PCR) Negative (Neg) 08/27/23 18:02 Influenza Type B (PCR) Negative (Neg) 08/27/23 18:02 RSV (RT-PCR) Negative (Neg) 08/27/23 18:02 Impressions Chest X-Ray 08/27/23 16:25 XR chest 1V portable HISTORY: Fall. trauma COMPARISON: Chest CT 03/23/2023. FINDINGS: No pneumothorax. The heart is top normal in size. Stable volume loss and blunting of the right lateral costophrenic sulcus suggestive of chronic/postoperative change. No new focal lung consolidations to suggest a pneumonia. No evidence for pulmonary edema. No acute fractures identified. Stable linear scarlike densities within the right lung base. IMPRESSION: No acute process. ACT 112: Negative or not required by law. Electronically signed by: Casey Casey M.D. 08/27/2023 5:[address] 08/27/23 16:[address] DOSE: 547.75 mGy.cm HISTORY: trauma TECHNIQUE: Multiaxial CT images of the head were performed without the use of intravenous contrast. Automated exposure control was utilized for this study. A dose lowering technique was utilized adhering to the principles of ALARA. Comparison: Brain MRI 01/11/2016. Findings: Small amount of hyperdense material within the right maxillary sinus. This could represent inspissated secretions or hemorrhage. The mastoid air cells are clear. Right frontal scalp/supraorbital soft tissue swelling with a small laceration. There is also nasal soft tissue swelling and mild right occipital scalp swelling.. The calvarium and skull base are intact. The ventricles and sulci are within normal limits. There is no mass, hematoma, midline shift, or acute infarct. Impression: 1. No acute intracranial abnormality. 2. Right-sided scalp and nasal soft tissue swelling. ACT 112: Negative or not required by law. Electronically signed by: Casey Casey M.D. 08/27/2023 5:[address] 08/27/23 17:[address] DOSE: HISTORY: fall, neck pain TECHNIQUE: Multiaxial CT images of the cervical spine were performed and reformatted in the sagittal and coronal plane without the use of contrast. A dose lowering technique was utilized adhering to the principles of ALARA. COMPARISON: None. FINDINGS: No fractures. No subluxation. Prevertebral soft tissues and the C1-C2 interval are intact. No pneumothorax. Moderate degenerative changes are noted. IMPRESSION: No fractures within the cervical spine. ACT 112: Negative or not required by law. Electronically signed by: Casey Casey M.D. 08/27/2023 8:[address] 08/27/23 17:[address] DOSE: HISTORY: fall, nasal injury, right eye lac, syncope TECHNIQUE: Multiaxial CT images of the maxillofacial region were performed and reformatted in the coronal plane without the use of contrast. A dose lowering technique was utilized adhering to the principles of ALARA. COMPARISON: None. FINDINGS: Minimally displaced right nasal bone fracture. There is nasal soft tissue swelling. The visualized cervical spine, skull base, pterygoid plates, zygomatic arches, lamina papyracea, orbital floors, nasal septum, and mandible are intact. There is a punctate metallic density within the right upper lip on image 167 consistent with a foreign body the globes and retrobulbar fat are intact. There is right supraorbital and nasal soft tissue swelling. Small amount of hemorrhage noted within the right maxillary sinus. IMPRESSION: 1. Minimally displaced right nasal bone fracture. 2. Right supraorbital and nasal soft tissue swelling. 3. There is a punctate metallic foreign body within the upper lip. ACT 112: Negative or not required by law. Electronically signed by: Casey Casey M.D. 08/27/2023 6:01 PM Hand X-Ray 08/27/23 18:54 XR hand RT min 3V routine CLINICAL HISTORY: fall, pain, thenar eminence. Right hand pain. COMPARISON STUDY: None. FINDINGS: Soft tissue swelling at the thumb base. There is a punctate metallic foreign body within the distal soft tissues of the right index finger.. Transverse fracture at the base of the right first metacarpal which is mildly displaced. There may be a small intra-articular component of the fracture. There is also radial dislocation of the first metacarpal relation to the trapezium bone. IMPRESSION: 1. Fracture at the base the right first metacarpal which appears to demonstrate a small intra-articular component. 2. There is associated radial dislocation at the first carpometacarpal joint. ACT 112: Negative or not required by law. Electronically signed by: Casey Casey M.D. 08/27/2023 7:39 PM ECG Additional Comments: ECG. Normal sinus rhythm with rate of 86. No significant change was found. Code Status & VTE Plan VTE Prophylaxis Plan VTE Prophylaxis will be ordered: Yes
--- NOTE | 2023-08-27 22:40 | Emergency Department Note ---
Impression & Plan Syncope and collapse, Face lacerations, Fracture of nasal bone, Fracture of metacarpal, first, right hand ED Provider Note NAME: ZACKARY RIVERA AGE: 67 SEX: Male INFORMANT: Patient ED PROVIDER(S): Santiago Castro MD CHIEF COMPLAINT: Fall and head injury PLAN: Disposition: Admitted Outpatient prescription management: none Referral: None MEDICAL DECISION MAKING: Patient presented because of a fall. On history this was concerning for syncopal event as he fell directly onto his face and does not have any recollection of the actual fall. Workup was initiated. Patient was in a cervical collar. CT imaging of the head was performed did not reveal any intracranial bleeding or skull fracture. Patient does have a nasal bone fracture. CT imaging of the face and cervical spine did not reveal any acute process otherwise. Patient did have a chest x-ray performed this was negative. ECG shows sinus rhythm. Cardiac monitoring did not reveal any acute findings. Patient's lacerations were repaired by my PA Miriam Castro PA-C. I refer you to the EMR for further details. Cardiac troponin, CBC, chemistry panel and LFTs were unremarkable. COVID and flu testing negative. Patient had x-ray imaging of his right hand and was found to have a fracture of the first metacarpal base. There was some subluxation. Patient had 2 small skin tears on the right thumb but nothing that appeared to be deep to suggest an open fracture. There was a small laceration over the bridge of the nose. Laceration did not appear to involve the nasal bone fracture. He was empirically treated with a dose of Ancef. Patient was given Tylenol. Cervical collar was removed and patient was cleared. He had bacitracin and bandage applied to the skin tears. Patient had a thumb spica splint placed on the right hand. I did consult with orthopedics, Dr. Garcia regarding the patient's hand injury. I did send him images which he reviewed. We did discuss the appearance of the first metacarpal carpal joint. He did not recommend any manipulation. He recommended the thumb spica splinting and orthopedic follow-up. I did notify him the patient will be admitted. [facility] Case was discussed with Dr. perez. He did evaluate the patient in the ER. Patient will be admitted for further management. Care/management discussed with: assistant manager pt Level of care consideration(s): After review of the information above and other included data, I feel the patient requires escalation of care to admission Triage Nursing notes: reviewed and agree them. Vital Signs: reviewed and remarkable for no significant abnormalities Additional History obtained from: none Chronic Medical/Social Conditions affecting care: COPD Prior/ Outside/ External records reviewed: none Differential Diagnosis: Fracture, dislocation, ICH, soft tissue injury, vasovagal event, dehydration, infection, hypoglycemia, electrolyte abnormalities, cardiac sources, intracerebral event, pulmonary embolism, seizure, toxicologic, neurologic, as well as other pathologies. Diagnostics, independently interpreted by me: ECG: Twelve-lead ECG reveals normal sinus rhythm at [address] elevation or depression. No PACs or PVCs. Cardiac Monitoring: Cardiac monitoring ordered by me: The patient was placed on continuous cardiac monitoring and observed. It revealed a normal sinus rhythm at 80 beats per minute without ectopy or evidence of dysrhythmia. Medical decision rules: none Imaging studies: Chest x-ray. Findings: A chest x-ray was performed and revealed no pneumothorax, effusion, infiltrate, pulmonary edema, free air under the diaphragm, or wide mediastinum. Impression: No acute disease. Right hand x-ray reveals a fracture of the base of the first metacarpal. HPI: 67 year old Male arrives for evaluation of a fall.. Patient states that he went to [facility] today and when he was walking and felt somewhat dizzy. The next thing he realizes he was in an ambulance and had bleeding on his face and pain in his right hand. Patient reportedly fell forward and landed on his face. He had bleeding from above the right eye and also from the bridge of the nose. There was some deformity to his nose. He does note some pain in the nose. He rated his pain as a 5 out of 10. Patient was placed in a cervical collar. He was brought to emergency department for evaluation. Patient denies any recent illness or other medical issues. Patient states has been eating and drinking well. Pt denies headache, fevers, chills, diaphoresis, visual changes, neck pain, chest pain, breathing difficulties, nausea, vomiting, abdominal pain, back pain, melena, hematochezia, urinary symptoms, numbness, weakness, lymphadenopathy, rash, or other complaints. PAST MEDICAL HISTORY: See Below, COPD, lung cancer PAST SURGICAL HISTORY: See Below, SOCIAL HISTORY: See Below, smoker HOME MEDICATIONS: See Below ALLERGIES: See Below VITALS: See Below PHYSICAL EXAMINATION: GENERAL: Awake, alert, well-appearing, in no distress HENT: Normocephalic, forehead contusion and right eyebrow laceration noted. Bridge of the nose laceration present. Mild deformity to the nose present. Dried blood at the nares without active epistaxis. Oropharynx reveals superficial mucosal injuries to the upper lip. Nothing significantly deep requiring laceration repair. EYES: Normal conjunctiva. Sclera non-icteric. NECK: Inspection normal. Cervical collar in place. No masses. RESPIRATORY: Clear to auscultation. No wheezes. No rales. Normal respiratory effort. CARDIAC: Normal rate. Normal rhythm. No murmurs. No rubs. Extremities warm and well perfused. Pulses equal. No JVD. GI: Soft, non-distended. No tenderness to palpation. No rebound or guarding. No masses. RECTAL: Deferred. MUSCULOSKELETAL: Examination of the right hand reveals some superficial skin tears without laceration or puncture wound over the right thenar eminence and thumb. Bruising noted. Range of motion limited secondary to pain. Both lower extremities and left upper extremity are atraumatic. Chest examination reveals no tenderness. The back is symmetrical on inspection without obvious abnormality. There is no CVA tenderness to palpation. No joint edema. LOWER EXTREMITIES: Calves are equal size bilaterally and non-tender. No edema. No discoloration. NEURO: Normal sensorium. No sensory or motor deficits noted. SKIN: No rash or jaundice noted. PROCEDURES: DEFINITIVE FRACTURE CARE NOTE: Dx: Right first metacarpal fracture Plan: Immobilization, rest, ice, elevation, analgesia, orthopedic follow up.. SPLINTING NOTE: Dx: Right first metacarpal fracture Procedure: Right Ortho-Glass thumb spica Indication: Fracture The injured extremity was identified. The patient was prepped and measured for the placement of a thumb spica orthoglass splint. Splint applied in the standard fashion over a layer of webril and secured using an elastic bandage. Set into a position of function. Normal neurovascular status after placement verified by me. The patient tolerated the procedure well and the care of the splint was discussed with the patient. No complications. 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 Right lower lobectomy/mediastinal lymph node dissection - Dr. Cordoba - 11/25/15 2. Status post completion of systemic chemotherapy 4 cycles of Taxotere and CDDP 3. Status post completion of radiation therapy 05/04/2016 received 5400 cGy " On 03/11/16 10:50 Yakelin Booker wrote "DIAGNOSIS: Lung, RLL, adenocarcinoma, [id number], stage IIIA TREATMENT: 1. Right lower lobectomy/mediastinal lymph node dissection - Dr. Cordoba - 11/25/15 2. Status post completion of systemic chemotherapy 4 cycles of Taxotere and CDDP 3. Now for radiation therapy" On 12/23/15 09:35 Lissette Henry wrote "DIAGNOSIS: Lung, RLL, adenocarcinoma, [id number], stage IIIA TREATMENT: 1. Right lower lobectomy/mediastinal lymph node dissection - Dr. Cordoba - 11/25/15" Surgical History History of lobectomy of lung History of hernia surgery H/O knee surgery Family History Mother Breast cancer Cardiac disorder Sister Breast cancer Father Hypertension Stroke Social History Smoking Status: Current some day smoker Tobacco Type: Cigarettes Age Started Using Tobacco: 15; Age Quit Using Tobacco: 60; packs per day: 1; Cigarettes Per Day: 20; Preferred Language: Afghan Visual Impairment: No Limitations Hearing Ability: Normal marital status: Feels Safe at Home: Yes Allergies Allergies Allergy/AdvReac Type Severity Reaction Status Date / Time procaine Allergy Intermediate swelling Verified 08/27/23 18:12 in face--NOVACAINE OKAY PER PT Home Meds Home Medications Medication Instructions Recorded Confirmed atorvastatin 20 mg tablet 20 mg PO DAILY 02/12/20 08/27/23 aspirin 81 mg tablet,delayed 81 mg PO DAILY 08/27/23 08/27/23 release Previous Rx's Medication Instructions Recorded fluticasone fur. 100 mcg-umeclid 1 inh inhalation DAILY #60 ea 08/02/23 62.5 mcg-vilant 25 mcg inhalat.powder (Trelegy Ellipta) Results & Data (ED) Vital Signs Vital Signs - 24 hr 08/27/23 16:00 08/27/23 16:00 08/27/23 16:24 Pulse Rate 88 87 Pulse Rate [Apical] Respiratory Rate 16 Blood Pressure 130/88 Blood Pressure [Left Arm] Blood Pressure Mean 102 Blood Pressure Mean [Left Arm] Pulse Oximetry 95 95 Oxygen Delivery Method Room Air Room Air Sepsis Recent Fever Within 48 Hours No Sepsis New/Unexplained Change in Mental Status N/A Sepsis Action Taken by Nursing No Action Required 08/27/23 16:25 08/27/23 19:00 08/27/23 20:24 Pulse Rate 87 Pulse Rate [Apical] 87 Respiratory Rate 16 Blood Pressure Blood Pressure [Left Arm] 104/68 Blood Pressure Mean Blood Pressure Mean [Left Arm] 80 Pulse Oximetry 94 94 Oxygen Delivery Method Room Air Room Air Sepsis Recent Fever Within 48 Hours Sepsis New/Unexplained Change in Mental Status Sepsis Action Taken by Nursing 08/27/23 22:08 Pulse Rate Pulse Rate [Apical] 86 Respiratory Rate 20 Blood Pressure Blood Pressure [Left Arm] Blood Pressure Mean Blood Pressure Mean [Left Arm] Pulse Oximetry 96 Oxygen Delivery Method Room Air Sepsis Recent Fever Within 48 Hours Sepsis New/Unexplained Change in Mental Status Sepsis Action Taken by Nursing Laboratory Data 08/27/23 16:07 08/27/23 16:07 Lab Results 08/27/23 08/27/23 Range/Units 16:07 18:02 WBC 8.05 (4.8-10.8) K/ul RBC 5.47 (4.70-6.10) M/uL Hgb 14.8 (14.0-18.0) g/dl Hct 45.4 (42.0-52.0) % MCV 83.0 (80.0-100.0) fL MCH 27.1 (25.0-34.0) pg MCHC 32.6 (32.0-36.0) g/dL RDW Std Deviation 40.2 (36.4-46.3) fL RDW Coeff of Ekaterina 13.3 (11.5-14.5) % Plt Count 233 (130-400) K/uL MPV 10.2 (9.4-12.4) fL PT 12.9 H (9.0-12.0) Seconds INR 1.2 H (0.9-1.1) APTT 22 (21-31) Seconds PTT Ratio 0.8 Sodium 136 (136-145) mmol/L Potassium 4.1 (3.5-5.1) mmol/L Chloride 104 (98-107) mmol/L Carbon Dioxide 21 (21-32) mmol/L Anion Gap 11 (3-11) BUN 13 (6-23) mg/dl Creatinine 0.99 (0.6-1.4) mg/dl Est Cr Clr Drug Dosing 80.2 ml/min Est GFR ( Amer) 90.3 ml/min Est GFR (Non-Af Amer) 77.9 ml/min BUN/Creatinine Ratio 13.1 (10-20) Glucose 122 H (70-99(Fasting)) mg/dl Calcium 8.7 (8.6-10.3) mg/dl Magnesium 2.1 (1.7-2.4) mg/dl Total Bilirubin 1.2 H (0.2-1.0) mg/dl AST 21 (13-39) U/L ALT 19 (7-52) U/L Alkaline Phosphatase 63 (34-104) U/L Troponin I High Sens 4.4 (0-20) pg/ml Total Protein 6.9 (6.0-8.3) gm/dl Albumin 4.0 (3.4-5.0) gm/dl Globulin 2.9 (2.5-4.0) gm/dl Albumin/Globulin Ratio 1.4 (0.9-2) SARS-CoV-2 (PCR) NEGATIVE (Negative) Influenza Type A (PCR) Negative (Neg) Influenza Type B (PCR) Negative (Neg) RSV (RT-PCR) Negative (Neg) Administered Medications Discontinued Medications Acetaminophen (Acetaminophen 500 Mg Tab) 1,000 mg PO NOW STA Stop: 08/27/23 18:55 Last Admin: 08/27/23 19:37 Dose: 1,000 mg Documented By: ACC Cefazolin Sodium (Ancef 2000mg) 2,000 mg in 15 mls @ 3.75 mls/min IV NOW STA Stop: 08/27/23 20:22 Last Admin: 08/27/23 20:38 Dose: 3.75 mls/min Documented By: ACC Lidocaine (Lidocaine/Epineph/Tetracaine 1 Ea Syr) 1 each EXT NOW STA Stop: 08/27/23 17:13 Last Admin: 08/27/23 17:17 Dose: 1 each Documented By: ACC Imaging Data Radiologist's Impression: Chest X-Ray 08/27/23 16:25 XR chest 1V portable HISTORY: Fall. trauma COMPARISON: Chest CT 03/23/2023. FINDINGS: No pneumothorax. The heart is top normal in size. Stable volume loss and blunting of the right lateral costophrenic sulcus suggestive of chronic/postoperative change. No new focal lung consolidations to suggest a pneumonia. No evidence for pulmonary edema. No acute fractures identified. Stable linear scarlike densities within the right lung base. IMPRESSION: No acute process. ACT 112: Negative or not required by law. Electronically signed by: Casey Casey M.D. 08/27/2023 5:[address] 08/27/23 16:[address] DOSE: 547.75 mGy.cm HISTORY: trauma TECHNIQUE: Multiaxial CT images of the head were performed without the use of intravenous contrast. Automated exposure control was utilized for this study. A dose lowering technique was utilized adhering to the principles of ALARA. Comparison: Brain MRI 01/11/2016. Findings: Small amount of hyperdense material within the right maxillary sinus. This could represent inspissated secretions or hemorrhage. The mastoid air cells are clear. Right frontal scalp/supraorbital soft tissue swelling with a small laceration. There is also nasal soft tissue swelling and mild right occipital scalp swelling.. The calvarium and skull base are intact. The ventricles and sulci are within normal limits. There is no mass, hematoma, midline shift, or acute infarct. Impression: 1. No acute intracranial abnormality. 2. Right-sided scalp and nasal soft tissue swelling. ACT 112: Negative or not required by law. Electronically signed by: Casey Casey M.D. 08/27/2023 5:[address] 08/27/23 17:[address] DOSE: HISTORY: fall, neck pain TECHNIQUE: Multiaxial CT images of the cervical spine were performed and reformatted in the sagittal and coronal plane without the use of contrast. A dose lowering technique was utilized adhering to the principles of ALARA. COMPARISON: None. FINDINGS: No fractures. No subluxation. Prevertebral soft tissues and the C1-C2 interval are intact. No pneumothorax. Moderate degenerative changes are noted. IMPRESSION: No fractures within the cervical spine. ACT 112: Negative or not required by law. Electronically signed by: Casey Casey M.D. 08/27/2023 8:[address] 08/27/23 17:[address] DOSE: HISTORY: fall, nasal injury, right eye lac, syncope TECHNIQUE: Multiaxial CT images of the maxillofacial region were performed and reformatted in the coronal plane without the use of contrast. A dose lowering technique was utilized adhering to the principles of ALARA. COMPARISON: None. FINDINGS: Minimally displaced right nasal bone fracture. There is nasal soft tissue swelling. The visualized cervical spine, skull base, pterygoid plates, zygomatic arches, lamina papyracea, orbital floors, nasal septum, and mandible are intact. There is a punctate metallic density within the right upper lip on image 167 consistent with a foreign body the globes and retrobulbar fat are intact. There is right supraorbital and nasal soft tissue swelling. Small amount of hemorrhage noted within the right maxillary sinus. IMPRESSION: 1. Minimally displaced right nasal bone fracture. 2. Right supraorbital and nasal soft tissue swelling. 3. There is a punctate metallic foreign body within the upper lip. ACT 112: Negative or not required by law. Electronically signed by: Casey Casey M.D. 08/27/2023 6:01 PM Hand X-Ray 08/27/23 18:54 XR hand RT min 3V routine CLINICAL HISTORY: fall, pain, thenar eminence. Right hand pain. COMPARISON STUDY: None. FINDINGS: Soft tissue swelling at the thumb base. There is a punctate metallic foreign body within the distal soft tissues of the right index finger.. Transverse fracture at the base of the right first metacarpal which is mildly displaced. There may be a small intra-articular component of the fracture. There is also radial dislocation of the first metacarpal relation to the trapezium bone. IMPRESSION: 1. Fracture at the base the right first metacarpal which appears to demonstrate a small intra-articular component. 2. There is associated radial dislocation at the first carpometacarpal joint. ACT 112: Negative or not required by law. Electronically signed by: Casey Casey M.D. 08/27/2023 7:39 PM Discharge Plan Visit Data Chief Complaint: Trauma Stated Complaint: FALL, HEAD INJURY & LAC TO NOSE & ABOVE EYE ED Provider: Santiago Castro Discharge Problem: Syncope and collapse, Face lacerations, Fracture of nasal bone, Fracture of metacarpal, first, right hand Patient Disposition: Admitted As Inpatient Forms Stand Alone Forms: [facility] Prescriptions Prescriptions: No Action Trelegy Ellipta 100-62.5-25 mcg blister with device 1 inh inhalation DAILY Qty: 60 12RF atorvastatin 20 mg tablet 20 mg PO DAILY aspirin 81 mg Tablet,Delayed Release (Dr/Ec) 81 mg PO DAILY Referrals Referrals: Isak Gtz MD [Primary Care Provider] -
[2023-08-27] MEDS ORDERED: NITROGLYCERIN SL 0.4 MG/TAB TAB SL PRN (22:51)
[2023-08-27] MEDS: ACETAMINOPHEN 325 MG TAB PO PRN (23:59)
[2023-08-28] MEDS: SODIUM CHLORIDE 0.9% 1,000 ML IV SCH
[2023-08-28 03:26] LABS: iSTAT Creatinine 1.1 mg/dl (0.6-1.3); iSTAT Ionized Calcium 1.11 mmol/l (1.12-1.32); iSTAT Potassium 3.7 mmol/L (3.3-5.0)
[2023-08-28 06:32] LABS: Basophils # (auto) 0.03 K/uL (0.00-0.20); Basophils % (auto) 0.4 %; Eosinophils # (auto) 0.06 K/uL (0.00-0.50); Eosinophils % (auto) 0.7 %; Hematocrit (blood only) 40.9 % (42.0-52.0); Hemoglobin 13.1 g/dl (14.0-18.0); Immature Granulocytes # (auto) 0.06 K/uL (0.01-0.20); Immature Granulocytes % (auto) 0.7 %; Lymphocytes # (auto) 1.49 K/uL (1.20-3.40); Mean Corpuscular Hemoglobin 26.8 pg (25.0-34.0); Mean Corpuscular Volume 83.6 fL (80.0-100.0); Mean Platelet Volume 9.7 fL (9.4-12.4); Monocytes # (auto) 1.04 K/uL (0.11-0.59); Monocytes % (auto) 12.6 %; Neutrophils # (auto) 5.58 K/uL (1.40-6.50); Neutrophils % (auto) 67.6 %; Platelet Count 252 K/uL (130-400); RDW Coefficient of Variation 13.5 % (11.5-14.5); RDW Standard Deviation 41.4 fL (36.4-46.3); Red Blood Count 4.89 M/uL (4.70-6.10); White Blood Count 8.26 K/ul (4.8-10.8)
[2023-08-28 06:45] LABS: BUN Creatinine Ratio 14.3 (10-20); Calcium 8.4 mg/dl (8.6-10.3); Creatinine Clr Calc Pharmacy 94.2 ml/min; Est GFR (African American) 104.3 ml/min; Magnesium 2.1 mg/dl (1.7-2.4); Potassium 3.7 mmol/L (3.5-5.1)
[2023-08-28 06:54] LABS: Troponin I High Sensitivity 7.3 pg/ml (0-20)
--- NOTE | 2023-08-28 07:43 | Hospitalist Progress Note ---
Date of Service August 28, 2023 Assessment & Plan (1) Syncope and collapse: Plan: Mr. Witt is a 67-year-old male with past medical history significant for hyperlipidemia, COPD, diverticulosis of large intestine, obesity, right lung lower lobe adenocarcinoma status post right lung lower lobectomy in 2016 and s/p chemo and radiation , radiation fibrosis of the lung presents with syncope. #Syncope and collapse Reports of diarrhea 08/25 Orthostatics negative 08/26 after IVF Continue IV fluids Telemetry monitoring, no events overnight Troponin negative Echo with EF Carotid dopplers ordered Cardiology consult, appreciate recommendations UA for culture Plan for MRI r/o basilar/posterior stroke given acute dizziness while ambulating #Facial injuries, right sided scalp/ soft tissue swelling CT Head: Findings: Small amount of hyperdense material within the right maxillary sinus. This could represent inspissated secretions or hemorrhage. The mastoid air cells are clear. Right frontal scalp/supraorbital soft tissue swelling with a small laceration. There is also nasal soft tissue swelling and mild right occipital scalp swelling.. The calvarium and skull base are intact. The ventricles and sulci are within normal limits. There is no mass, hematoma, midline shift, or acute infarct. Will monitor Supportive care #Normocytic anemia Potentially traumatic given eechymosis noted around right hand and right periorbit -Hgb at 13.1 this morning, iso IVF Denies any source of bleeding at this time Anemia labs in am, FOBT Trend CBC #Right first metacarpal fracture S/p splint in the ER Consult orthopedics Pain control #Diarrhea Seems improving Stool PCR ordered #COPD Continue home inhalers #History of lung cancer S/p right lower lobectomy S/p chemo and radiation Follows with pulmonary #Hyperlipidemia On statin DVT prophylaxis SCDs for now Disposition Telemetry Full code Admission and Anticipated Discharge Date Admission Date: August 27, 2023 Subjective No acute events overnight Denies chest pain, dizziness, or other acute concerns Reports that he had diarrhea on Monday--felt "great" on Monday, but upon walking he felt dizzy and off balance, ultimately with fall and LOC. He denies any residual dizziness, palpitations He states diarrhea seems resolved He notes that his pressures run on the "lower side" of things Physical Exam Constitutional: WD/WN, vitals as above Eyes: right periorbital edema and ecchymosis Respiratory: normal respiratory effort, lungs clear to auscultation Cardiovascular: RRR, no murmur, no edema Musculoskeletal: right immobilizer cast, ecchymosis along exposed hand and down second digit Results & Data Results & Data Vital Signs (Past 12 Hours) Vital Signs Temp Pulse Pulse Resp BP Pulse Ox O2 Del Method 08/28/23 07:21 36.4 C L 75 18 99/65 L 96 Room Air 08/28/23 04:00 36.8 C 80 16 96/60 L 95 Room Air 08/27/23 23:00 85 08/27/23 23:00 36.7 C 96 H 16 113/75 96 Room Air 08/27/23 22:51 36.6 C 86 16 113/75 96 Room Air 08/27/23 22:08 86 20 96 Room Air 08/27/23 20:24 87 Laboratory Results Short CBC 08/27/23 08/28/23 Range/Units 16:07 05:39 WBC 8.05 8.26 (4.8-10.8) K/ul Hgb 14.8 13.1 L (14.0-18.0) g/dl Hct 45.4 40.9 L (42.0-52.0) % Plt Count 233 252 (130-400) K/uL BMP 08/27/23 08/28/23 16:07 05:39 Sodium 136 138 Potassium 4.1 3.7 Chloride 104 108 H Carbon Dioxide 21 23 BUN 13 12 Creatinine 0.99 0.84 Glucose 122 H 107 H Calcium 8.7 8.4 L Liver Function 08/27/23 Range/Units 16:07 Total Bilirubin 1.2 H (0.2-1.0) mg/dl AST 21 (13-39) U/L ALT 19 (7-52) U/L Alkaline Phosphatase 63 (34-104) U/L Albumin 4.0 (3.4-5.0) gm/dl Medications Administered Home Medications Medication Instructions Recorded Confirmed Last Taken atorvastatin 20 mg tablet 20 mg PO DAILY 02/12/20 08/27/23 08/27/23 fluticasone fur. 100 mcg-umeclid 1 inh inhalation DAILY #60 ea 08/02/23 08/27/23 08/27/23 62.5 mcg-vilant 25 mcg inhalat.powder (Trelegy Ellipta) aspirin 81 mg tablet,delayed 81 mg PO DAILY 08/27/23 08/27/23 08/27/23 release Active Medications Generic Name Dose Route Start Last Admin Trade Name Tana PRN Reason Stop Dose Admin Acetaminophen 650 mg 08/27/23 22:51 08/28/23 07:32 Acetaminophen 325 Mg Tab PO 09/26/23 22:50 650 mg Q4H PRN Administration Pain or Fever Sodium Chloride 1,000 mls @ 125 mls/hr 08/27/23 22:51 08/28/23 07:30 Nss IV 09/26/23 22:50 125 mls/hr .Q8H HUE Administration
[2023-08-28] MEDS: FLUTICASONE FUROATE 100MCG 14 PUFFS/INHALER INH SCH (08:30)
[2023-08-28] MEDS: UMECLIDINIUM/VILANTEROL 62.5/25MCG 7 PUFFS/INHALER INH SCH (08:31)
[2023-08-28] MEDS: ATORVASTATIN 20 MG TAB PO SCH (08:31)
[2023-08-28] MEDS: ASPIRIN 81 MG ECTAB PO SCH (08:31)
[2023-08-28] MEDS ORDERED: NON-FORMULARY MEDICATION (Fluticasone-Umeclidin-Vilanter [Trelegy Ellipta] 100-62.5-25 mcg INH SCH (09:00)
--- NOTE | 2023-08-28 09:55 | Electrocardiogram Report ---
Test Reason : Blood Pressure : / mmHG Vent. Rate : 086 BPM Atrial Rate : 086 BPM P-R Int : 184 ms QRS Dur : 098 ms QT Int : 382 ms P-R-T Axes : 035 012 039 degrees QTc Int : 457 ms Normal sinus rhythm Normal ECG When compared with ECG of 20-NOV-2015 14:20, No significant change was found Confirmed by Micheal Mccall ([id number]) on 08/28/2023 9:55:32 AM Referred By: REFERRED SELF Confirmed By:Vincent Mccall
--- NOTE | 2023-08-28 09:55 | Electrocardiogram Report ---
Test Reason : Blood Pressure : / mmHG Vent. Rate : 078 BPM Atrial Rate : 078 BPM P-R Int : 190 ms QRS Dur : 096 ms QT Int : 390 ms P-R-T Axes : 040 005 021 degrees QTc Int : 444 ms Normal sinus rhythm Normal ECG When compared with ECG of 27-AUG-2023 16:18, (unconfirmed) No significant change was found Confirmed by Micheal Mccall ([id number]) on 08/28/2023 9:55:01 AM Referred By: REFERRED SELF Confirmed By:Vincent Mccall
[2023-08-28] MEDS: oxyCODONE HCL IR 5 MG TAB (IMMEDIATE RELEASE) PO PRN (10:22)
--- NOTE | 2023-08-28 11:15 | Orthopedic Consultation ---
Date of Consultation August 28, 2023 Assessment & Plan (1) Fracture of metacarpal, first, right hand: Continue splinting of the right first metacarpal fracture. Continue elevation on at least 2 pillows. Ice packs to the first metacarpal area. Patient will likely need ORIF of his first metacarpal fracture. Dr. Garcia notified of fracture and waiting for his input to discuss timing of fixation of his fracture. History of Present Illness Reason for Consultation: Right base of fifth first metacarpal fracture Attending Physician: Amanda Anand MD History of Present Illness 67-year-old male with past medical history significant for hyperlipidemia, COPD, diverticulosis of large intestine, obesity, right lung lower lobe adenocarcinoma status post right lung lower lobectomy in 2016 and s/p chemo and radiation , radiation fibrosis of the lung presented with syncope. Patient states that he does not remember the fall. He apparently was at [facility] [employer] and was having a cigarette outside of the store. He had been having some episodes of diarrhea over the last several days but was starting to get better. While he was edin ding out side, he felt somewhat dizzy and then does not remember anything after that. Patient had apparently fell forward onto the pavement. He apparently woke up in the ambulance and at that time was somewhat confused and was brought to the emergency room. He was admitted for syncopal episode. He was noted to have a nasal bone fracture on maxillofacial CT and was noted also to have a displaced first metacarpal fracture of the right hand at the base of the first metacarpal. This was placed into a radial gutter splint and he was admitted for further care. We have been asked to see him for his hand fracture. Allergies Allergy/AdvReac Type Severity Reaction Status Date / Time procaine Allergy Intermediate swelling Verified 08/27/23 18:12 in face--NOVACAINE OKAY PER PT Home Medications Medication Instructions Recorded Confirmed Type atorvastatin 20 mg tablet 20 mg PO DAILY 02/12/20 08/27/23 History fluticasone fur. 100 mcg-umeclid 1 inh inhalation DAILY #60 ea 08/02/23 08/27/23 Rx 62.5 mcg-vilant 25 mcg inhalat.powder (Trelegy Ellipta) aspirin 81 mg tablet,delayed 81 mg PO DAILY 08/27/23 08/27/23 History release Patient History Medical History Mild chronic obstructive pulmonary disease Radiation fibrosis Non-small cell cancer of right lung (11/06/15) "DIAGNOSIS: Lung, RLL, adenocarcinoma, [id number], stage IIIA TREATMENT: 1. Right lower lobectomy/mediastinal lymph node dissection - Dr. Cordoba - 11/25/15 2. Status post completion of systemic chemotherapy 4 cycles of Taxotere and CDDP 3. Status post completion of radiation therapy 05/04/2016 received 5400 cGy " On 03/11/16 10:50 Yakelin Booker wrote "DIAGNOSIS: Lung, RLL, adenocarcinoma, [id number], stage IIIA TREATMENT: 1. Right lower lobectomy/mediastinal lymph node dissection - Dr. Cordoba - 11/25/15 2. Status post completion of systemic chemotherapy 4 cycles of Taxotere and CDDP 3. Now for radiation therapy" On 12/23/15 09:35 Lissette Henry wrote "DIAGNOSIS: Lung, RLL, adenocarcinoma, [id number], stage IIIA TREATMENT: 1. Right lower lobectomy/mediastinal lymph node dissection - Dr. Cordboa - 11/25/15" Surgical History History of lobectomy of lung History of hernia surgery H/O knee surgery Family History Mother Breast cancer Cardiac disorder Sister Breast cancer Father Hypertension Stroke Social History Smoking Status: Current some day smoker Tobacco Type: Cigarettes Age Started Using Tobacco: 15; Age Quit Using Tobacco: 60; packs per day: 1; Cigarettes Per Day: 20; Second Hand Exposure: No; Do You Dip or Chew Tobacco: No; Tobacco Cessation Education Requested by Patient: No Hx Alcohol Use: Yes Alcohol type: beer Hx Substance Use: No Preferred Language: Maltese Communication Ability: Effective Visual Impairment: No Limitations Hearing Ability: Normal Retail Link Analyst Required: No Beliefs That Will Affect Care: None marital status: Current Living Situation: Spouse Current Living Situation Comment: Pt's son stays with he and his intermittently Other Information That Helps Us Care for You: No Feels Safe at Home: Yes Safety Concerns: Feels Safe At This Time Assistive Devices: None Physical Exam Physical Exam: Patient is a 67-year-old white male who currently is sitting up in bed awake and alert. Patient has noticeable facial ecchymosis and swelling around the nose and orbits. He has a splint noted on his right upper extremity that is resting on 2 pillows. Patient states that he is currently comfortable but has some noticeable pain in the right hand that can be throbbing at times. On examination of his right upper extremity, he has a radial gutter splint that incorporates the thumb. This is left on during exam. The tip of his thumb is protruding through the dressing and is pink and warm. Sensation is intact. He is moving the rest of his fingers quite well. He has some mild swelling that is going into the second and third fingers. Some mild ecchymosis noted around the MP joint of the second finger with swelling. He has good flexion and extension of second through fifth fingers. Sensation is intact. Cap refill is less than 2 seconds Results & Data Vital Signs (Past 12 Hours) Vital Signs Temp Pulse Pulse Resp BP Pulse Ox O2 Del Method 08/28/23 10:53 36.3 C L 69 16 99/66 L 96 Room Air 08/28/23 08:00 71 08/28/23 07:21 36.4 C L 75 18 99/65 L 96 Room Air 08/28/23 04:00 36.8 C 80 16 96/60 L 95 Room Air Laboratory Results Laboratory Results WBC 8.26 K/ul (4.8-10.8) 08/28/23 05:39 RBC 4.89 M/uL (4.70-6.10) 08/28/23 05:39 Hgb 13.1 g/dl (14.0-18.0) L 08/28/23 05:39 POC Hgb 15.0 g/dl (14.0-18.0) 08/27/23 16:12 Hct 40.9 % (42.0-52.0) L 08/28/23 05:39 POC Hct 44 % (42-52) 08/27/23 16:12 MCV 83.6 fL (80.0-100.0) 08/28/23 05:39 MCH 26.8 pg (25.0-34.0) 08/28/23 05:39 MCHC 32.0 g/dL (32.0-36.0) 08/28/23 05:39 RDW Std Deviation 41.4 fL (36.4-46.3) 08/28/23 05:39 RDW Coeff of Ekaterina 13.5 % (11.5-14.5) 08/28/23 05:39 Plt Count 252 K/uL (130-400) 08/28/23 05:39 MPV 9.7 fL (9.4-12.4) 08/28/23 05:39 Immature Gran % (Auto) 0.7 % 08/28/23 05:39 Neut % (Auto) 67.6 % 08/28/23 05:39 Lymph % (Auto) 18.0 % 08/28/23 05:39 Kinney % (Auto) 12.6 % 08/28/23 05:39 Eos % (Auto) 0.7 % 08/28/23 05:39 Baso % (Auto) 0.4 % 08/28/23 05:39 Neut # (Auto) 5.58 K/uL (1.40-6.50) 08/28/23 05:39 Lymph # (Auto) 1.49 K/uL (1.20-3.40) 08/28/23 05:39 Kinney # (Auto) 1.04 K/uL (0.11-0.59) H 08/28/23 05:39 Eos # (Auto) 0.06 K/uL (0.00-0.50) 08/28/23 05:39 Baso # (Auto) 0.03 K/uL (0.00-0.20) 08/28/23 05:39 Immature Gran # (Auto) 0.06 K/uL (0.01-0.20) 08/28/23 05:39 PT 12.9 Seconds (9.0-12.0) H 08/27/23 16:07 INR 1.2 (0.9-1.1) H 08/27/23 16:07 APTT 22 Seconds (21-31) 08/27/23 16:07 PTT Ratio 0.8 08/27/23 16:07 POC Sodium 138 mmol/L (135-144) 08/27/23 16:12 Sodium 138 mmol/L (136-145) 08/28/23 05:39 POC Potassium 3.7 mmol/L (3.3-5.0) 08/27/23 16:12 Potassium 3.7 mmol/L (3.5-5.1) 08/28/23 05:39 POC Chloride 104 mmol/L (101-112) 08/27/23 16:12 Chloride 108 mmol/L (98-107) H 08/28/23 05:39 Carbon Dioxide 23 mmol/L (21-32) 08/28/23 05:39 POC Total CO2 21 mmol/L (24-31) L 08/27/23 16:12 Anion Gap 7 (3-11) 08/28/23 05:39 POC Anion Gap 18.0 mmol/L (16-25) 08/27/23 16:12 POC BUN 11 mg/dl (7-18) 08/27/23 16:12 BUN 12 mg/dl (6-23) 08/28/23 05:39 Creatinine 0.84 mg/dl (0.6-1.4) 08/28/23 05:39 POC Creatinine 1.1 mg/dl (0.6-1.3) 08/27/23 16:12 Est Cr Clr Drug Dosing 94.2 ml/min 08/28/23 05:39 Est GFR ( Amer) 104.3 ml/min 08/28/23 05:39 Est GFR (Non-Af Amer) 90.0 ml/min 08/28/23 05:39 BUN/Creatinine Ratio 14.3 (10-20) 08/28/23 05:39 Glucose 107 mg/dl (70-99(Fasting)) H 08/28/23 05:39 POC Glucose (other) 128 mg/dl (70-99) H 08/27/23 16:12 Calcium 8.4 mg/dl (8.6-10.3) L 08/28/23 05:39 POC Ioniz Calcium Judah 1.11 mmol/l (1.12-1.32) L 08/27/23 16:12 Magnesium 2.1 mg/dl (1.7-2.4) 08/28/23 05:39 Total Bilirubin 1.2 mg/dl (0.2-1.0) H 08/27/23 16:07 AST 21 U/L (13-39) 08/27/23 16:07 ALT 19 U/L (7-52) 08/27/23 16:07 Alkaline Phosphatase 63 U/L (34-104) 08/27/23 16:07 Troponin I High Sens 7.3 pg/ml (0-20) 08/28/23 05:39 Total Protein 6.9 gm/dl (6.0-8.3) 08/27/23 16:07 Albumin 4.0 gm/dl (3.4-5.0) 08/27/23 16:07 Globulin 2.9 gm/dl (2.5-4.0) 08/27/23 16:07 Albumin/Globulin Ratio 1.4 (0.9-2) 08/27/23 16:07 SARS-CoV-2 (PCR) NEGATIVE (Negative) 08/27/23 18:02 Influenza Type A (PCR) Negative (Neg) 08/27/23 18:02 Influenza Type B (PCR) Negative (Neg) 08/27/23 18:02 RSV (RT-PCR) Negative (Neg) 08/27/23 18:02 Impressions Chest X-Ray 08/27/23 16:25 XR chest 1V portable HISTORY: Fall. trauma COMPARISON: Chest CT 03/23/2023. FINDINGS: No pneumothorax. The heart is top normal in size. Stable volume loss and blunting of the right lateral costophrenic sulcus suggestive of chronic/postoperative change. No new focal lung consolidations to suggest a pneumonia. No evidence for pulmonary edema. No acute fractures identified. Stable linear scarlike densities within the right lung base. IMPRESSION: No acute process. ACT 112: Negative or not required by law. Electronically signed by: Casey Casey M.D. 08/27/2023 5:[address] 08/27/23 16:[address] DOSE: 547.75 mGy.cm HISTORY: trauma TECHNIQUE: Multiaxial CT images of the head were performed without the use of intravenous contrast. Automated exposure control was utilized for this study. A dose lowering technique was utilized adhering to the principles of ALARA. Comparison: Brain MRI 01/11/2016. Findings: Small amount of hyperdense material within the right maxillary sinus. This could represent inspissated secretions or hemorrhage. The mastoid air cells are clear. Right frontal scalp/supraorbital soft tissue swelling with a small laceration. There is also nasal soft tissue swelling and mild right occipital scalp swelling.. The calvarium and skull base are intact. The ventricles and sulci are within normal limits. There is no mass, hematoma, midline shift, or acute infarct. Impression: 1. No acute intracranial abnormality. 2. Right-sided scalp and nasal soft tissue swelling. ACT 112: Negative or not required by law. Electronically signed by: Casey Casey M.D. 08/27/2023 5:[address] 08/27/23 17:[address] DOSE: HISTORY: fall, neck pain TECHNIQUE: Multiaxial CT images of the cervical spine were performed and reformatted in the sagittal and coronal plane without the use of contrast. A dose lowering technique was utilized adhering to the principles of ALARA. COMPARISON: None. FINDINGS: No fractures. No subluxation. Prevertebral soft tissues and the C1-C2 interval are intact. No pneumothorax. Moderate degenerative changes are noted. IMPRESSION: No fractures within the cervical spine. ACT 112: Negative or not required by law. Electronically signed by: Casey Casey M.D. 08/27/2023 8:[address] 08/27/23 17:[address] DOSE: HISTORY: fall, nasal injury, right eye lac, syncope TECHNIQUE: Multiaxial CT images of the maxillofacial region were performed and reformatted in the coronal plane without the use of contrast. A dose lowering technique was utilized adhering to the principles of ALARA. COMPARISON: None. FINDINGS: Minimally displaced right nasal bone fracture. There is nasal soft tissue swelling. The visualized cervical spine, skull base, pterygoid plates, zygomatic arches, lamina papyracea, orbital floors, nasal septum, and mandible are intact. There is a punctate metallic density within the right upper lip on image 167 consistent with a foreign body the globes and retrobulbar fat are intact. There is right supraorbital and nasal soft tissue swelling. Small amount of hemorrhage noted within the right maxillary sinus. IMPRESSION: 1. Minimally displaced right nasal bone fracture. 2. Right supraorbital and nasal soft tissue swelling. 3. There is a punctate metallic foreign body within the upper lip. ACT 112: Negative or not required by law. Electronically signed by: Casey Casey M.D. 08/27/2023 6:01 PM Hand X-Ray 08/27/23 18:54 XR hand RT min 3V routine CLINICAL HISTORY: fall, pain, thenar eminence. Right hand pain. COMPARISON STUDY: None. FINDINGS: Soft tissue swelling at the thumb base. There is a punctate metallic foreign body within the distal soft tissues of the right index finger.. Transv erse fracture at the base of the right first metacarpal which is mildly displaced. There may be a small intra-articular component of the fracture. There is also radial dislocation of the first metacarpal relation to the trapezium bone. IMPRESSION: 1. Fracture at the base the right first metacarpal which appears to demonstrate a small intra-articular component. 2. There is associated radial dislocation at the first carpometacarpal joint. ACT 112: Negative or not required by law. Electronically signed by: Casey Casey M.D. 08/27/2023 7:39 PM
--- NOTE | 2023-08-28 12:53 | Magnetic Resonance Report ---
MR brain wo con CLINICAL HISTORY: syncope, preceded by dizziness TECHNIQUE: Multiplanar and multisequence MR images of the brain were obtained without intravenous con trast. Comparison: Comparison is made to CT head 08/27/2023 FINDINGS: No abnormal restricted diffusion is identified. The white matter is unremarkable. The ventricular sys tem is normal in appearance. No mass is seen. There is no mass effect or midline shift. There is no e vidence of acute intraparenchymal hemorrhage. No extra axial fluid collections are seen. The corpus c allosum, pituitary gland, and cerebellar tonsils appear grossly unremarkable. Flow voids of the major intracranial arterial vessels are identified. The imaged portions of the para nasal sinuses, mastoid air cells, and orbits are unremarkable. IMPRESSION: No acute abnormality and in particular no evidence of acute infarct. ACT 112: Negative or not required by law. Electronically signed by: Hernan Herbert M.D. 08/28/2023 12:51 PM
[2023-08-28 13:53] LABS: Appearance Urine Clear (Clear); Bilirubin Urine Negative (Negative); Blood Urine Negative (Negative); Color Urine Yellow; Glucose Urine UA Negative (Negative); Ketones Urine Negative (Negative); Leukocyte Esterase Urine Negative (Negative); Nitrite Urine Negative (Negative); Protein Urine Negative (Negative); Specific Gravity Urine 1.022 (1.000-1.030); Urobilinogen Urine Negative (Negative)
--- NOTE | 2023-08-28 15:15 | Cardiology Consultation ---
Date of Consultation August 28, 2023 Assessment & Plan (1) Syncope and collapse: Plan 67-year-old male admitted with syncopal episode. Suspect precipitated by diarrheal illness and dehydration, possible vasovagal etiology. Recommend check orthostatic blood pressures. Continue telemetry monitoring during hospitalization. Echocardiogram results reviewed. No significant valvular pathology or LV dysfunction. No evidence of acute coronary syndrome or dysrhythmia. Recommend outpatient 14-day ZIO monitor and cardiology follow-up upon discharge. Thank you for allow me to participate in the care of your patient. History of Present Illness Reason for Consultation: Syncope Requesting Physician: Dr. Espinosa Attending Physician: Amanda Anand MD History of Present Illness 67-year-old male present to the emergency department with fall, syncope, with facial trauma and right upper extremity fracture. Patient notes multiple bouts of diarrhea on Monday. Intermittently lightheaded over the weekend. On Monday he awoke feeling somewhat better, how ever, continues to note lightheadedness. Drove with his to [employer] for shopping. He began walking into [employer] after smoking a cigarette when he became acutely lightheaded, dizzy, and fell. Next thing he remembers, waking up in the ambulance. Denies prior history of syncope. No chest discomfort, or palpitations. Denies personal history of coronary disease, congestive heart failure, rheumatic fever as a child, or diabetes. Currently, patient resting comfortably. Sinus rhythm on telemetry. Preliminary review of bedside echocardiogram demonstrates normal LV systolic function without significant valvular pathology. Allergies Allergy/AdvReac Type Severity Reaction Status Date / Time procaine Allergy Intermediate swelling Verified 08/27/23 18:12 in face--NOVACAINE OKAY PER PT Home Medications Medication Instructions Recorded Confirmed Type atorvastatin 20 mg tablet 20 mg PO DAILY 02/12/20 08/27/23 History fluticasone fur. 100 mcg-umeclid 1 inh inhalation DAILY #60 ea 08/02/23 08/27/23 Rx 62.5 mcg-vilant 25 mcg inhalat.powder (Trelegy Ellipta) aspirin 81 mg tablet,delayed 81 mg PO DAILY 08/27/23 08/27/23 History release Patient History Medical History Mild chronic obstructive pulmonary disease Radiation fibrosis Non-small cell cancer of right lung (11/06/15) "DIAGNOSIS: Lung, RLL, adenocarcinoma, [id number], stage IIIA TREATMENT: 1. Right lower lobectomy/mediastinal lymph node dissection - Dr. Cordoba - 11/25/15 2. Status post completion of systemic chemotherapy 4 cycles of Taxotere and CDDP 3. Status post completion of radiation therapy 05/04/2016 received 5400 cGy " On 03/11/16 10:50 Yakelin Booker wrote "DIAGNOSIS: Lung, RLL, adenocarcinoma, [id number], stage IIIA TREATMENT: 1. Right lower lobectomy/mediastinal lymph node dissection - Dr. Cordoba - 11/25/15 2. Status post completion of systemic chemotherapy 4 cycles of Taxotere and CDDP 3. Now for radiation therapy" On 12/23/15 09:35 Lissette Carl wrote "DIAGNOSIS: Lung, RLL, adenocarcinoma, [id number], stage IIIA TREATMENT: 1. Right lower lobectomy/mediastinal lymph node dissection - Dr. Cordoba - 11/25/15" Surgical History History of lobectomy of lung History of hernia surgery H/O knee surgery Family History Mother Breast cancer Cardiac disorder Sister Breast cancer Father Hypertension Stroke Social History Smoking Status: Current some day smoker Tobacco Type: Cigarettes Age Started Using Tobacco: 15; Age Quit Using Tobacco: 60; packs per day: 1; Cigarettes Per Day: 20; Second Hand Exposure: No; Do You Dip or Chew Tobacco: No; Tobacco Cessation Education Requested by Patient: No Hx Alcohol Use: Yes Alcohol type: beer Hx Substance Use: No Preferred Language: Frisian Communication Ability: Effective Visual Impairment: No Limitations Hearing Ability: Normal Manager Health Required: No Beliefs That Will Affect Care: None marital status: Current Living Situation: Spouse Current Living Situation Comment: Pt's son stays with he and his intermittently Other Information That Helps Us Care for You: No Feels Safe at Home: Yes Safety Concerns: Feels Safe At This Time Assistive Devices: None Review of Systems Review of Systems: All systems reviewed & are unremarkable except as noted in Subjective Physical Exam Constitutional: well nourished; no acute distress Respiratory: no respiratory distress, no labored breathing and no retractions Auscultation: no crackles, no rales, no rhonchi and no wheezes Cardiovascular: Rate/Rhythm: regular rate and regular rhythm Heart Sounds: normal S1 and normal S2; no murmur Vessels: no JVD and no carotid bruit Extremities: no edema Gastrointestinal (Abdomen): Inspection/Auscultation: normal bowel sounds; abdomen not distended Percussion/Palpation: abdomen soft; abdomen nontender, no guarding and abdomen not rigid Neurologic: CN's II-XI intact bilaterally and moves all extremities; no focal motor deficits Results & Data Vital Signs (Past 12 Hours) Vital Signs Temp Pulse Pulse Resp BP Pulse Ox O2 Del Method 08/28/23 15:01 36.8 C 82 16 107/66 96 Room Air 08/28/23 10:53 36.3 C L 69 16 99/66 L 96 Room Air 08/28/23 08:00 71 08/28/23 07:21 36.4 C L 75 18 99/65 L 96 Room Air 08/28/23 04:00 36.8 C 80 16 96/60 L 95 Room Air Laboratory Results Cardiac Enzymes 08/27/23 08/28/23 08/28/23 Range/Units 16:07 05:39 11:11 AST 21 (13-39) U/L Troponin I High Sens 4.4 7.3 6.9 (0-20) pg/ml Coagulation 08/27/23 Range/Units 16:07 PT 12.9 H (9.0-12.0) Seconds APTT 22 (21-31) Seconds CBC 08/27/23 08/28/23 Range/Units 16:07 05:39 WBC 8.05 8.26 (4.8-10.8) K/ul RBC 5.47 4.89 (4.70-6.10) M/uL Hgb 14.8 13.1 L (14.0-18.0) g/dl Hct 45.4 40.9 L (42.0-52.0) % Plt Count 233 252 (130-400) K/uL Neut # (Auto) 5.58 (1.40-6.50) K/uL Lymph # (Auto) 1.49 (1.20-3.40) K/uL Carson # (Auto) 1.04 H (0.11-0.59) K/uL Eos # (Auto) 0.06 (0.00-0.50) K/uL Baso # (Auto) 0.03 (0.00-0.20) K/uL Comprehensive Metabolic Panel 08/27/23 08/28/23 Range/Units 16:07 05:39 Sodium 136 138 (136-145) mmol/L Potassium 4.1 3.7 (3.5-5.1) mmol/L Chloride 104 108 H (98-107) mmol/L Carbon Dioxide 21 23 (21-32) mmol/L BUN 13 12 (6-23) mg/dl Creatinine 0.99 0.84 (0.6-1.4) mg/dl Glucose 122 H 107 H (70-99(Fasting)) mg/dl Calcium 8.7 8.4 L (8.6-10.3) mg/dl AST 21 (13-39) U/L ALT 19 (7-52) U/L Alkaline Phosphatase 63 (34-104) U/L Total Protein 6.9 (6.0-8.3) gm/dl Albumin 4.0 (3.4-5.0) gm/dl Intake and Output 08/28/23 08/28/23 08/28/23 06:59 14:59 22:59 Intake Total 0 / 0 937.5 / 937.5 Output Total 250 / 250 Balance -250 / -250 937.5 / 937.5 Intake: IV 937.5 / 937.5 Sodium Chloride 0.9% 1,000 ml @ 937.5 / 937.5 125 mls/hr IV .Q8H [facility] Rx#: [id number] Oral 0 / 0 Output: Urine 250 / 250 Other: # Unmeasured Voids 650 Weight 95.3 kg Weight Measurement Method Standing Scale
[2023-08-29 06:31] LABS: Hematocrit (blood only) 38.5 % (42.0-52.0); Hemoglobin 12.4 g/dl (14.0-18.0); Mean Corpuscular Hemoglobin 27.1 pg (25.0-34.0); Mean Corpuscular Hgb Conc 32.2 g/dL (32.0-36.0); Mean Corpuscular Volume 84.1 fL (80.0-100.0); Mean Platelet Volume 9.7 fL (9.4-12.4); Platelet Count 237 K/uL (130-400); RDW Coefficient of Variation 13.6 % (11.5-14.5); RDW Standard Deviation 42.1 fL (36.4-46.3); Red Blood Count 4.58 M/uL (4.70-6.10); White Blood Count 6.86 K/ul (4.8-10.8)
[2023-08-29 06:51] LABS: BUN Creatinine Ratio 12.7 (10-20); Calcium 7.9 mg/dl (8.6-10.3); Creatinine Clr Calc Pharmacy 100.3 ml/min; Est GFR (African American) 106.9 ml/min; Est GFR (Non-African American) 92.3 ml/min; Magnesium 1.9 mg/dl (1.7-2.4); Phosphorus 2.5 mg/dl (2.5-4.9); Potassium 3.5 mmol/L (3.5-5.1)
[2023-08-29 07:00] LABS: Folate (Folic Acid),Ser orPlas 19.89 ng/ml (>5.38)
--- NOTE | 2023-08-29 07:37 | Ultrasound Report ---
ULTRASOUND OF THE CAROTID ARTERIES CLINICAL HISTORY: sycope TECHNIQUE: Real-time, grayscale, and color Doppler sonography of the carotid arteries is performed. I mages are reviewed in the transverse and longitudinal planes. COMPARISON: None available at the time of this dictation. FINDINGS: The carotid arteries are patent bilaterally and demonstrate antegrade flow. There is no atherosclerot ic plaque on the right and no atherosclerotic plaque on the left. Normal doppler arterial waveforms a re seen throughout. Velocity measurements are listed below. Common carotid peak systolic velocity (cm/sec): RIGHT: 44 LEFT: 80 ICA peak systolic velocity (cm/sec): RIGHT: 75 LEFT: 101 ICA/CC peak systolic ratio: RIGHT: 1.7 LEFT: 1.3 Antegrade flow was shown in the vertebral arteries. The external carotid arteries are patent. IMPRESSION: 1. There is no sonographic evidence of hemodynamically significant stenosis in the right or left car otid arterial system. 2. Antegrade flow is shown in the vertebral arteries. Society of Radiologists in Ultrasound consensus guidelines: Normal: ICA PSV is <125 cm/sec and no plaque or intimal thickening is visible sonographically additional criteria include ICA/CCA PSV ratio <2.0 and ICA EDV <40 cm/sec <50% ICA stenosis: ICA PSV is <125 cm/sec and plaque or intimal thickening is visible sonographically additional criteria include ICA/CCA PSV ratio <2.0 and ICA EDV <40 cm/sec 50-69% ICA stenosis: ICA PSV is 125-230 cm/sec and plaque is visible sonographically additional criteria include ICA/CCA PSV ratio of 2.0-4.0 and ICA EDV of 40-100 cm/sec ?70% ICA stenosis but less than near occlusion: ICA PSV is >230 cm/sec and visible plaque and luminal narrowing are seen at [place]-scale and color Dopp ler ultrasound (the higher the Doppler parameters lie above the threshold of 230 cm/sec, the greater the likelihood of severe disease) additional criteria include ICA/CCA PSV ratio >4 and ICA EDV >100 cm/sec ACT 112: Negative or not required by law. Electronically signed by: Hernan Herbert M.D. 08/29/2023 7:35 AM
[2023-08-29] MEDS: CYANOCOBALAMIN (B-12) 500 MCG TABLET PO SCH (09:36)
--- NOTE | 2023-08-29 11:26 | Discharge Summary ---
Discharge Summary Date of Service August 29, 2023 Notes For Next Care Provider Medication Changes From Visit Oxycodone 5mg q6h pain given right metacarpal fracture Admission HPI Per Admitting Provider 67-year-old male with past medical history significant for hyperlipidemia, COPD, diverticulosis of large intestine, obesity, right lung lower lobe adenocarcinoma status post right lung lower lobectomy in 2016 and s/p chemo and radiation , radiation fibrosis of the lung presents with syncope. Patient states he quit smoking when he was diagnosed with lung cancer. But lately once in a while he is smoking. Yesterday had a 6 episodes of diarrhea. Today morning he had 1 episode of loose stools and he was feeling better. He went to [facility]. He smoked. Then he felt dizzy and felt like passing out and next thing he remembers was waking up in the ambulance. He was told that he passed out for about 5 minutes. When he woke up in the ambulance he was seemed confused for couple of minutes then he was back to his usual self. Has headache. Has pain in the right side of neck. Vision is okay. No runny nose. No sore throat. No cough. No chest pains. No shortness of breath. No nausea. No abdominal pain. Normal micturition. No hematuria. No blood in the stools. No swelling the legs. Before this episode he was ambulating okay. No fevers. Past medical history. As mentioned above Past surgical history.Bronchoscopy. Colonoscopy. [place] tooth removal. Knee arthroscopy. Inguinal hernia repair. Right medial meniscus repair. S/p right lower lobectomy. Social history. . Smoked from -. Smoked 1 pack a day for 41 years. Currently smoking 1 or 2 cigarettes on and off. States 1 pack of cigarettes last 2 weeks. Drinks alcohol. No drug use. Family history. Brother had prostate cancer. Sister had breast cancer. Mother had valvular heart disease. Father had stroke. Admission Exam Per Admitting Provider General- Not in acute distress Head- Bruises and lacerations seen on right brow region and nose region Eyes- PERRL. ENT- oropharynx clear Neck- supple, no JVD, Lungs- clear to auscultation no wheezing or crackles. Heart- regular rate and rhythm; no murmur, no gallop. Abdomen- normal bowel sounds, soft, nontender, no distension. Extremities- no pretibial edema, no erythema seen. Neuro- alert, oriented x; PERRL, no facial palsy; no dysarthria; moves extremities. Principal Dx & Hospital Course #1 = Principal Diagnosis (1) Syncope and collapse: Mr. Witt is a 67-year-old male with past medical history significant for hyperlipidemia, COPD, diverticulosis of large intestine, obesity, right lung lower lobe adenocarcinoma status post right lung lower lobectomy in 2016 and s/p chemo and radiation , radiation fibrosis of the lung presents with syncope. Patient reported diarrheal illness on Monday with poor intake and subsequently collapse on Monday. He runs with systolics in low 90-100s persistently. Telemetry negative. CT and MRI brain negative for stroke. ECHO stable. No clear etiology of syncopal collapse. Recommended follow up with Cards for zio patch. Ortho evaluated patient given displace right metacarpal fracture and will coordinate OP ORIF. On day of discharge, patient reports feeling well. Denies any lightheadedness, dizziness, or near syncope. Denies chest pain, palpitations. Denies uncontrolled pain. #Syncope and collapse Reports of diarrhea 08/25 Orthostatics negative 08/26 after IVF Continue IV fluids Telemetry monitoring, no events overnight Troponin negative Echo with EF Carotid dopplers negative Cardiology consult, appreciate recommendations -OP follow up with ZIO patch UA negative MRI negative #Facial injuries, right sided scalp/ soft tissue swelling CT Head: Findings: Small amount of hyperdense material within the right maxillary sinus. This could represent inspissated secretions or hemorrhage. The mastoid air cells are clear. Right frontal scalp/supraorbital soft tissue swelling with a small laceration. There is also nasal soft tissue swelling and mild right occipital scalp swelling.. The calvarium and skull base are intact. The ventricles and sulci are within normal limits. There is no mass, hematoma, midline shift, or acute infarct. Will monitor Supportive care #Normocytic anemia #B12 deficiency Potentially traumatic given ecchymosis noted around right hand and right periorbit -Hgb at 13.1 this morning, iso IVF Denies any source of bleeding at this time B12 low, start daily supplement #Right first metacarpal fracture S/p splint in the ER Consult orthopedics -Plan for OP ORIF with Dr. Garcia follow up Pain control #Diarrhea Resolved #COPD Continue home inhalers #History of lung cancer S/p right lower lobectomy S/p chemo and radiation Follows with pulmonary #Hyperlipidemia On statin Discharge Exam Constitutional WD/WN, vitals as above Respiratory normal respiratory effort, lungs clear to auscultation Cardiovascular RRR, no murmur, no edema Musculoskeletal right wrist immobilizer in place with notable ecchymosis on right digits, motion sensation in tact Updated Medication List Medication Instructions Recorded Confirmed Type atorvastatin 20 mg tablet 20 mg PO DAILY 02/12/20 08/27/23 History fluticasone fur. 100 mcg-umeclid 1 inh inhalation DAILY #60 ea 08/02/23 08/27/23 Rx 62.5 mcg-vilant 25 mcg inhalat.powder (Trelegy Ellipta) aspirin 81 mg tablet,delayed 81 mg PO DAILY 08/27/23 08/27/23 History release acetaminophen 325 mg tablet 650 mg (2 x 325 mg) PO Q4H PRN 08/29/23 Rx pain #90 tabs cyanocobalamin (vitamin B-12) 500 500 mcg PO QAM #30 tabs 08/29/23 Rx mcg tablet oxycodone 5 mg tablet 5 mg PO Q6H PRN severe pain (scale 08/29/23 Rx score 7-10) #28 tabs Hospital Stay Data Consultations 08/27/23 20:18 ED Decision to Admit Stat 08/28/23 08:00 Consult Cardiology Routine Consult Orthopedic Surgery Routine Diagnostic Imagining Performed 08/27/23 16:25 CT head/brain wo con Stat 08/27/23 17:10 CT cervical spine wo con Stat CT facial bones wo con Stat 08/28/23 US carotid doppler BI Routine 08/28/23 11:09 MR brain wo con Routine Pending Results Patient Have Any Pending Studies at Discharge: No Discharge Instructions Given to Patient (Per Discharging Provider) Extensive heart and brain work up ruled out any notable heart issues or stroke as a cause for your collapse. You will need follow up with Cardiology to discuss heart monitor placement to ensure you are not experiencing any infrequent but troublesome heart rhythms. Please ensure follow up with Cardiology in 1-2 weeks upon discharge. It was noted that you have fracture of your right thumb that will require surgery. You will need to coordinate with Dr. Garcia the timing for procedure upon discharge. You can continue 650mg Tylenol every 4-6hours for mild pain. You will be sent home with Oxycodone 5mg that can be taken every 6 hours for severe pain. Please ensure bowel movement every 1-2 days and use Miralax or stool softeners to help if constipation arises. You were also noted to be low on B12. This can cause fatigue, nerve pain, and weakness, as well as lead up to signs of dementia. Please start daily b12 or even b complex supplement. Total Time Total Time Spent Total Time Spent (In Minutes): 45
--- NOTE | 2023-08-29 15:00 | Electrocardiogram Report ---
Test Reason : Blood Pressure : / mmHG Vent. Rate : 070 BPM Atrial Rate : 070 BPM P-R Int : 190 ms QRS Dur : 084 ms QT Int : 398 ms P-R-T Axes : 037 004 020 degrees QTc Int : 429 ms Poor data quality, interpretation may be adversely affected Normal sinus rhythm Normal ECG When compared with ECG of 28-AUG-2023 05:40, No significant change was found Confirmed by Micheal Mccall ([id number]) on 08/29/2023 3:00:10 PM Referred By: REFERRED SELF Confirmed By:Vincent Mccall
[2023-08-31] MEDS ORDERED: ROPIVACAINE 0.5% 5 MG/ML 30 ML VIAL ONE (11:31)
[2023-08-31] MEDS ORDERED: EPINEPHrine INJ 1 MG/ML AMP ONE (11:31)
[2023-08-31] MEDS ORDERED: DEXAMETHASONE SOD INJ 4 MG/ML VIAL ONE (11:31)
== END 2023-08-29 12:14 | disposition home or self-care (01) | DRG 312 ==
LOC: ED 15:51 → 4W 21:37